=== PATIENT | male | born 1945 | race Caucasian/White ===

== ENCOUNTER → 2017-09-02 11:15 | Outpatient (CLI) | payer MEDICARE ==
[2015-02-21 07:17] VITALS: BMI 19.8
[~2017-09-02 11:15] MED LIST: BACTRIM DS TABL1 TAB PO; BETAPACE 80 MG80 MG PO; DILANTIN100 MG PO; DILAUDID4 MG PO; HYDROCODONE-APA1 TAB PO; KLOR-CON 1010 MEQ PO; LASIX40 MG PO; LEVAQUIN500 MG PO; METOPROLOL TAR100 M1 PO; MUCINEX600 MG PO; PLAVIX75 MG PO; PRAVACHOL40 MG PO; RESTORIL15 MG PO; RESTORIL22.5 MG PO; STERAPRED DS 1210 MG PO
[2017-09-02 11:54] LABS: BASOPHILS 0.8 % (0-2); EOSINOPHILS 5.3 % (0-7); HEMOGLOBIN 12.5 g/dL (13.5-17.5); IMMATURE GRANULOCYTES 0.2 % (0-5); LYMPHOCYTES 17.6 % (15-50); MCH 24.6 pg (26.0-34.0); MCHC 30.5 g/dL (31.0-37.0); MCV 80.7 fL (80.0-100.0); MEAN PLATELET VOLUME 8.9 fL (7.4-10.4); MONOCYTES 9.5 % (2-11); NEUTROPHILS 66.6 % (40-80); PLATELET COUNT 203 10x3/uL (130-400); RBC 5.08 10x6/uL (4.20-6.10); RDW 19.6 % (11.5-14.5); WBC 6.6 10x3/uL (4.8-10.8)
[2017-09-02 12:02] LABS: INR 1.01 (0.85-1.17); PROTIME 13.2 SECONDS (11.6-15.0)
[2017-09-02 12:11] LABS: % SATURATION 8 % (15-55); IRON 27 ug/dl (35-150); TOTAL IRON BIND CAPACITY 302 ug/dl (260-445); UNSAT IRON BIND CAPACITY 275 ug/dl (150-375)
[2017-09-02 12:49] LABS: ALBUMIN 3.8 g/dL (3.4-5.0); BILIRUBIN - DIRECT 0.06 mg/dL (0.00-0.30); BILIRUBIN - INDIRECT 0.21 mg/dL (0.00-1.00); BILIRUBIN - TOTAL 0.27 mg/dL (0.2-1.3); PROTEIN - SERUM 8.5 g/dL (6.4-8.2)
[2017-09-03 10:13] LABS: ALPHA FETOPROTEIN -(TUMOR MRK) 3.1 ng/mL (0.0-8.3)
[2017-09-03 11:10] LABS: HEPATITIS C ANTIBODY 0.1 (0.0-0.9)
[2017-09-07 15:25] LABS: MITOCHONDRIAL ANTIBODY 21.4 Units (0.0-20.0)
== END | disposition home or self-care (01) ==
LOC: D.LAB 11:15 → D.NM 11:45
PROVIDERS: Internal Medicine Gastroenterology
DX: R94.5 Abnormal results of liver function studies (principal); R93.2 Abnormal findings on diagnostic imaging of liver and biliary tract; D64.9 Anemia, unspecified

== ENCOUNTER 2018-01-03 11:15 | Outpatient (CLI) | payer MEDICARE ==
[~2018-01-03] VITALS: Ht 172.7 cm; Wt 68.2 kg
--- NOTE | ~2018-01-03 | HEMODYNAMI ---
PATIENT:ORI MONSALVE MEDICAL RECORD: [id number] : 43 LOCATION:[facility] ADMISSION DATE: 01/03/18 Generatedon:01/03/201815:48 Patient name: ORI MONSALVE Patient #: [id number] SSN: : 1945 Date of study: 01/03/2018 Page: Of Hemodynamic Procedure Report Patient Data Patient Demographics Procedure consent was obtained First Name: ORI Gender: Male Last Name: BELLO : 1945 Middle Initial: ERIBERTO Age: 72 year(s) Patient #: [id number] Race: Unknown Additional ID: [id number] Contact details Address: [address] [place] [address] State: [place] City: [place] Zip code: [address] Past Medical History Allergies: No known allergies Admission Admission Data Admission Date: 01/03/2018 Admission Time: 11:15 Procedure Procedure Types Cath Procedure Diagnostic Procedure PPM/ICD Permanent Pacer Generator Exg. Miscellaneous Procedures Moderate Sedation up to 30 minutes Procedure Description Procedure Date Procedure Date: 01/03/2018 Procedure Start Time: 15:25 Procedure Staff Name Function Isak Montemayor MD Performing Physician Rivka Clement RT Monitor Elijah Hansen RT Scrub Lin Ramon RN Nurse Yoly Lino RN Nurse Stanley Hernandez MD Assisting physician Procedure Data Cath Procedure Fluoroscopy Diagnostic fluoroscopy Total fluoroscopy Time: 0 time: 0 min min Diagnostic fluoroscopy Total fluoroscopy dose: 0 dose: 0 mGy mGy Estimated blood loss: 5 ml Procedure Medications Medication Administration Route Dosage 0.9% NaCl I.V. 100 ml/hr Oxygen NC 2 l/min Lidocaine 1% added to field 20 Ancef (1Gm/50ml NS) I.V.P.B 1 g Ancef Irrigation Topical 1 g (1gm/500ml NS) Fentanyl I.V. 50 mcg Versed I.V. 1 mg Fentanyl I.V. 50 mcg Versed I.V. 1 mg Hemodynamics Rest Heart Rate: 103 (bpm) Snapshots Pre Cath Intra NCS Post Cath Vital Signs Time Heart Resp SPO2 etCO2 NIBP (mmHg) Rhythm Pain Sedation Rate (ipm) (%) (mmHg) Status Level (bpm) 15:10:38 96 22 99 14.9 148/97(120) NSR 0 (11) 10(A) , No pain 15:16:01 80 20 98 14.9 144/101(123) NSR 0 (11) 10(A) , No pain 15:20:21 104 16 98 13.5 141/66(119) ST 0 (11) 10(A) , No pain 15:24:39 90 18 97 0 130/66(93) NSR 0 (11) 9(A) , No pain 15:28:59 69 16 98 32.2 111/53(90) NSR 0 (11) 10(A) , No pain 15:34:03 72 16 97 28.4 127/69(106) NSR 0 (11) 9(A) , No pain 15:39:18 69 16 96 32.2 110/62(92) NSR 0 (11) 9(A) , No pain 15:43:28 77 16 96 30.7 118/57(104) NSR 0 (11) 10(A) , No pain 15:47:40 88 11 97 23.2 122/66(109) NSR 0 (11) 10(A) , No pain Medications Time Medication Route Dose Verified Delivered Reason Notes Effec tiveness by by 15:09:08 0.9% NaCl I.V. 100ml/hr Isak Ceballos used for Albina Ramon RN procedure 15:09:18 Oxygen NC 2 l/min Isak Ceballos Per Albina Ramon RN physician 15:09:59 Lidocaine added 20ml ANGIE Hernandez for local 1% to vial x2 Wilfredo MANLEY anesthetic field 15:10:16 Ancef I.V.P.B 1 g ANGIE Ceballos used for (1Gm/50ml Wilfredo Ramon RN procedure NS) 15:10:43 Ancef Topical 1 g ANGIE HERNANDEZ used for Irrigation Wilfredo MNALEY procedure (1gm/500ml NS) 15:23:43 Fentanyl I.V. 50 mcg ANGIE Ceballos for Wilfredo Ramon RN sedation 15:23:57 Versed I.V. 1 mg ANGIE Ceballos for Wilfredo Ramon RN sedation 15:30:05 Fentanyl I.V. 50 mcg ANGIE figueroa MD 15:30:10 Versed I.V. 1 mg ANGIE Ceballos for Wilfredo figueroa MD Procedure Log Time Note 14:56:07 Yoly Lino RN sent for patient. Start room use. 14:56:08 Time tracking: Regular hours 14:56:15 Plan of Care:Hemodynamics will remain stable., Cardiac rhythm will remain stable., Comfort level will be maintained., Respiratory function will remain adequate., Patient/ family verbilizes understanding of procedure., Procedure tolerated without complication., Recovers from procedure without complications.. 15:01:55 Patient received from Pre/Post Procedure Room to CCL 2 Alert and oriented. Tansferred to table in Supine position. 15:01:56 Warm blankets applied, and teresa hugger turned on for patient comfort. 15:01:56 Correct patient and procedure confirmed by team. 15:01:57 Signed procedure consent form obtained from patient. 15:01:58 ECG and BP/O2 sat monitors applied to patient. 15:01:59 Full Disclosure recording started 15:09:08 0.9% NaCl 100ml/hr I.V. was administered by Lin Ramon RN; used for procedure; 15:09:18 Oxygen 2 l/min NC was administered by Lin Ramon RN; Per physician; 15:09:38 Vital chart was started 15:09:49 Rhythm: paced 15:09:59 Lidocaine 1% 20ml vial x2 added to field was administered by ANGIE Hernandez MD; for local anesthetic; 15:10:01 H&P Date Dictated: 01/02/2018 Within 30 days and on chart., H&P Addendum completed by physician on day of procedure. (MUST COMPLETE FOR ALL OUTPATIENTS). 15:10:02 Pre-procedure instructions explained to patient. 15:10:03 Pre-op teaching completed and patient verbalized understanding. 15:10:04 Family in patients room. 15:10:06 Patient NPO since Midnight. 15:10:11 Patient allergic to No known allergies 15:10:13 Is the patient allergic to Iodine/contrast media? No. 15:10:16 Ancef (1Gm/50ml NS) 1 g I.V.P.B was administered by Lin Ramon RN; used for procedure; 15:10:17 Patient diabetic? No. 15:10:27 Is patient on blood thinner?Yes 15:10:29 ACC The patient was administered the following blood thiners within the last 24 hours: ACCPlavix 15:10:33 Previous problem with sedation/anesthesia? No ? 15:10:34 Snore? Yes 15:10:35 Sleep apnea? No 15:10:35 Deviated septum? No 15:10:36 Opens mouth fully? Yes 15:10:37 Sticks out tongue? Yes 15:10:39 Airway obstruction? Yes COPD 15:10:43 Ancef Irrigation (1gm/500ml NS) 1 g Topical was administered by ANGIE HERNANDEZ MD; used for procedure; 15:10:43 Dentures? No ? 15:10:47 Patient pain scale 0/10 ?. 15:10:52 IV patent on arrival in left hand with 0.9% NaCl at O. 15:10:54 Lab results completed and on chart. 15:11:05 Right chest area was prepped with chlora-prep and draped in sterile fashion 15:11:06 Alarms reviewed by R. N. 15:11:06 Sharps counted by scrub and verified by R.N. 15:11:09 Use device set LYDIA PPM 15:11:12 2.0 Ticron Multipack ([id number]) opened to sterile field. 15:11:12 3.0 Vicryl Single Pack [id number] opened to sterile field. 15:11:13 5.0 Monocryl PS2 [id number] opened to sterile field. 15:11:13 Cautery Tip Branch Office Administrator opened to sterile field. 15:11:14 Cautery Pushbutton Pencil opened to sterile field. 15:11:14 Mepilex Dressing ([id number]) opened to sterile field. 15:11:29 MedAimetisa MRI PPM Dual Generator [id number] opened to sterile field. 15:15:57 Baseline sample Acquired. 15:16:11 Physician paged 15:16:11 Physician responded to page. 15:22:28 Final Timeout: patient, procedure, and site verified with staff and physician. All members of the team are in agreement. 15:22:48 Right chest site verified by team. 15::56 Physical assessment completed. ASA score P 2 - A patient with mild systemic disease as per Stanley Hernandez MD. 15:23:20 Sedation plan: IV Moderate Sedation Medication:Versed, Fentanyl 15:23:37 Medtronic branch customer service representative Jonah Lopez present for procedure. 15:23:43 Fentanyl 50 mcg I.V. was administered by Lin Ramon RN; for sedation; 15::57 Versed 1 mg I.V. was administered by Lin Ramon RN; for sedation; 15::57 Pre sharps counted by scrub and verified by RN: Sutures: 7; Sponges: 5; Stick needles: 2; Skin needles: 2; Blade: 1; Cautery: 1 15:24:00 Grounding pad site Left thigh. 15:24:01 Grounding pad site free from injury. 15:25:18 Lidocaine 1% was administered to right subclavicular area by Stanley Hernandez MD . 15:26:23 Incision made to right subclavicular area. 15:26:24 Generator pocket made/opened. 15:30:05 Fentanyl 50 mcg I.V. was administered by Lin Ramon RN; for sedation; 15:30:10 Versed 1 mg I.V. was administered by Lin Ramon RN; for sedation; 15:30:42 PPM Dual was removed.. 15:30:49 PPM Dual was attached to lead(s) and inserted into pocket. 15:30:54 Device pocket was irrigated with Ancef. 15:31:21 Generator was sutured in place with 2-0 ticron. 15:31:32 Subcutaneous closure was completed with 3-0 vicryl. 15:32:40 Skin closure was completed with 5-0 monocryl. 15:40:47 Rt Chest incision was dressed with Mepilex dressing. 15:40:52 Procedure ended.(Physican Out) 15:41:10 Fluoroscopy time 00.00 minutes. 15:41:12 Fluoroscopy dose: 0 mGy 15:41:12 Flurop Dose total: 0 15:41:16 Sharps counted by scrub and verified by R.N. 15:41:30 Post sharps counted by scrub and verified by RN: Sutures: 7; Sponges: 5; Stick needles: 2; Skin needles: 2; Blade: 1; Cautery: 1 15:41:36 Insertion/operative site no bleeding no hematoma. 15:41:49 Post Chest area:stable, clean and dry 15:41:51 Post Procedure Pulses reassessed and unchanged 15:42:05 Post-procedure physical assessment completed. ASA score P 2 - A patient with mild systemic disease as per Stanley Hernandez MD. 15:42:23 Post procedure rhythm: paced 15:42:25 Estimated blood loss: 5 ml 15:42:26 Post procedure instruction explained to patient.Patient verbalizes understanding. 15:42:27 Patient needs reinforcement of post procedure teaching. 15:42:35 Procedure type changed to Cath procedure, Diagnostic procedure, PPM/ICD, Permanent Pacer Generator Exg., Miscellaneous Procedures, Moderate Sedation up to 30 minutes 15:42:39 See physician's report for complete and final results. 15:43:05 Procedure and supply charges have been captured, reviewed, submitted and are correct. 15:47:42 Vital chart was stopped 15:47:44 Report given to Pre/Post Procedure Room. 15:47:47 Patient transfered to Pre/Post Procedure Room with Stretcher. 15:48:00 End room use (Document Last) Device Usage Item Name Manufacture Quantity Catalog Hospital Part Current Minimal Lot# / Number Charge Number Stock Stock Serial# Code 2.0 Ticron Ethicon 4 [id number] 5 Multipack ([id number]) 3.0 Vicryl Ethicon 1 [id number] 609327 404704 5 Single Pack [id number] 5.0 Monocryl Ethicon 1 [id number] 355399 448270 5 PS2 Y495G Cautery Tip Microtek 1 [id number] 894925 888304 5 Branch Office Administrator [employer] Cautery Microtek 1 [id number] 68466 [id number] 5 Pushbutton [employer] Pencil Mepilex Cardinal 1 [id number] 539602 075594 [id number] 5 [facility] ([id number]) Medtronic Medtronic 1 [id number] 5 SN Advisa MRI [id number] PPM Dual EXP Generator 2018-11-24 [id number] Signature Audit Alden Stage Time Signature Unsigned Intra-Procedure 01/03/2018 Rivka 3:48:28 PM Counts RT(R) Signatures Monitor : Rivka Signature : Counts RT Date : Time : [address] [place] [address]
[2018-01-03 12:19] VITALS: BP 138/65; Ht 172.7 cm; Wt 68.2 kg
[2018-01-03 12:24] LABS: HEMATOCRIT 38.4 % (42.0-54.0); HEMOGLOBIN 11.4 g/dL (13.5-17.5); MCH 24.8 pg (26.0-34.0); MCHC 29.7 g/dL (31.0-37.0); MCV 83.5 fL (80.0-100.0); MEAN PLATELET VOLUME 9.4 fL (7.4-10.4); RBC 4.6 10x6/uL (4.20-6.10); RDW 19.1 % (11.5-14.5); WBC 6.2 10x3/uL (4.8-10.8)
[2018-01-03 12:55] LABS: ANION GAP 10.4 mmol/L (8-16); CALCIUM 8.6 mg/dL (8.5-10.1); CREATININE - SERUM 1.3 mg/dL (0.6-1.3); POTASSIUM - SERUM 4.4 mmol/L (3.5-5.1)
== END 2018-01-03 16:58 | disposition home or self-care (01) ==
LOC: D.CATH 11:15
PROVIDERS: Internal Medicine Interventional Cardiology
DX: Z45.010 Encounter for checking and testing of cardiac pacemaker pulse generator [battery] (principal); I49.9 Cardiac arrhythmia, unspecified; Z01.812 Encounter for preprocedural laboratory examination

== ENCOUNTER 2018-08-11 13:01 | Inpatient (IN) | payer MEDICARE ==
[~2018-08-11] VITALS: Ht 172.7 cm; Wt 62.0 kg
--- NOTE | ~2018-08-11 | CN ---
PATIENT NAME:ORI HDEZ MEDICAL RECORD: [id number] : 43 LOCATION:D. D.2136 ADMIT DATE: 08/11/18 ACCOUNT: [id number] CONSULTING PHYSICIAN: DENITA TRUONG MD REFERRING PHYSICIAN: JUNITO KEYES MD DATE OF CONSULTATION: 08/14/2018 CONSULT REQUESTING PHYSICIAN: Junito Keyes MD REASON FOR CONSULTATION: Bilateral pleural effusion, congestive heart failure. HISTORY OF PRESENT ILLNESS: Mr. Hdez is a 72-year-old gentleman who has a history of COPD and congestive heart failure. The patient was sick a few weeks ago. He was told that he has antibiotic that was treated with antibiotic, but the patient denies any fever and chill. There is no yellow or green color sputum production. The patient's shortness of breath persisted. He has a CTA of the chest yesterday, which did not show PE, but showed moderate pleural effusion with dependent atelectasis, possible infiltrate. REVIEW OF SYSTEMS: As in history of present illness. PAST MEDICAL HISTORY: 1. COPD. 2. Chronic hypoxic respiratory failure. 3. Congestive heart failure with chronic systolic dysfunction with EF 40-45%. 4. Peripheral vascular disease. 5. Coronary artery disease. 6. Hypertension. PAST SURGICAL HISTORY: 1. He has a CABG. 2. Carotid endarterectomy. 3. Status post pacemaker placement. 4. Multiple cardiac catheterizations and stent placement. 5. Herniorrhaphy. ALLERGIES: There are no known drug allergies. MEDICATIONS: Tradoriatech is reviewed. PERSONAL AND SOCIAL HISTORY: The patient is an ex-smoker. He is a nondrinker. FAMILY HISTORY: Significant for cancer and neurological disorders. PHYSICAL EXAMINATION: GENERAL: Now, the patient is lying comfortably in bed. He is not in acute distress. VITAL SIGNS: The blood pressure is 124/46, pulse is 63, respiration 20, temperature 97.3, SPO2 is 93% on 6 liter nasal cannula. HEENT: Conjunctivae are pink. Sclerae are not icteric. NECK: Supple, no JVD. CHEST: There is a dullness of percussion at the bases. There are bilateral crackles and wheeze on forceful expiration. HEART: Rhythm regular, normal sound, no murmur. ABDOMEN: Soft, bowel sounds present. No hepatosplenomegaly. CONSULT REPORT [id number] ORI HDEZ RECTAL: Deferred. EXTREMITIES: No cyanosis, no clubbing, no pedal edema. SKIN: Warm, normal turgor. CENTRAL NERVOUS SYSTEM: The patient is awake and alert. There are no obvious cranial nerve abnormality. The gait was not tested. IMAGING: CTA of the chest; there is no pulmonary embolism. There are bilateral moderate pleural effusion. There is severe emphysema. There is a dependent opacity, atelectasis, most likely secondary to edema and pleural effusion. I will doubt pneumonia. LABORATORY DATA: CBC; the WBC is 6000, hemoglobin 11.2, hematocrit 37.1, the platelet count is 214. Chemistry; sodium 143, potassium is 4, BUN is 12, and creatinine 1.3. IMPRESSION: 1. Qympd-nh-folnsie hypoxic respiratory failure. 2. Acute exacerbation of chronic obstructive pulmonary disease secondary to congestive heart failure. I will doubt pneumonia. 3. Bilateral moderate pleural effusion secondary to congestive heart failure. 4. Pulmonary edema. 5. Dependent atelectasis. 6. Congestive heart failure consistent with a chronic systolic dysfunction with the ejection fraction 40-45%. RECOMMENDATION: 1. Continue IV Lasix. 2. Albuterol ipratropium nebulizer. They will start Brovana and budesonide nebulizer. 3. Follow up labs and chest radiograph. If the pleural effusion is not getting any better, we will proceed with thoracentesis. Dr. Keyes, thank you for involving me in the care of Mr. Hdez. TRANSINT:[id number] Voice Confirmation ID: [id number] DOCUMENT ID: [id number] DENITA TRUONG MD CC: [id number] DICTATION DATE: 08/14/181739 TISSUE INSERTER: 08/14/182121 ADM IN [facility] [address] [place] [id number]
[2018-08-11] MEDS ORDERED: FLOMAX0.4 MG PO (13:39)
[2018-08-11] MEDS ORDERED: VITAMIN D250000 UNIT PO (13:40)
[2018-08-11 14:08] VITALS: BP 126/45; BMI 22.8
[2018-08-11 14:36] LABS: BASOPHILS 1.3 % (0-2); HEMATOCRIT 36.5 % (42.0-54.0); HEMOGLOBIN 11.2 g/dL (13.5-17.5); IMMATURE GRANULOCYTES 0.2 % (0-5); LYMPHOCYTES 12.7 % (15-50); MCH 24.2 pg (26.0-34.0); MCHC 30.7 g/dL (31.0-37.0); MCV 78.8 fL (80.0-100.0); MEAN PLATELET VOLUME 8.9 fL (7.4-10.4); MONOCYTES 13.5 % (2-11); NEUTROPHILS 67.3 % (40-80); PLATELET COUNT 233 10x3/uL (130-400); RBC 4.63 10x6/uL (4.20-6.10); RDW 18.6 % (11.5-14.5)
[2018-08-11 14:50] LABS: ALBUMIN 2.7 g/dL (3.4-5.0); ANION GAP 13.1 mmol/L (8-16); BILIRUBIN - TOTAL 0.38 mg/dL (0.2-1.3); CARBON DIOXIDE 28.4 mmol/L (21.0-32.0); CREATININE - SERUM 1.4 mg/dL (0.6-1.3); POTASSIUM - SERUM 4.5 mmol/L (3.5-5.1); PROTEIN - SERUM 6.5 g/dL (6.4-8.2)
[2018-08-11 20:00] VITALS: BP 126/50
[2018-08-12 04:00] VITALS: BP 114/42
[2018-08-12 09:28] VITALS: BP 131/51
[2018-08-12 12:58] VITALS: BP 117/50
[2018-08-12 13:25] VITALS: Ht 172.7 cm; Wt 62.0 kg
[2018-08-12 14:03] LABS: CKMB 1.1 U/L (0.0-3.6); CREATINE KINASE 85 UL (21-232); PRO BNP 7290 pg/mL (0-125); TROPONIN-I 0.053 ng/mL (0.000-0.060)
[2018-08-12 14:08] LABS: MAGNESIUM - SERUM 1.8 mg/dL (1.8-2.4)
[2018-08-12 14:09] LABS: PHENYTOIN (DILANTIN) 16.2 ug/mL (10.0-20.0)
[2018-08-12 15:37] LABS: APTT 29.1 SECONDS (22.8-39.4); INR 1.26 (0.85-1.17); PROTIME 15.4 SECONDS (11.6-15.0)
[2018-08-12 15:38] LABS: D-DIMER-QUANTITATIVE 2.61 ug/mLFEU (0.20-0.54)
[2018-08-12 15:41] LABS: % SATURATION 7 % (15-55); IRON 15 ug/dl (35-150); TOTAL IRON BIND CAPACITY 204 ug/dl (260-445); UNSAT IRON BIND CAPACITY 189 ug/dl (150-375)
[2018-08-12 18:45] LABS: CKMB 1.2 U/L (0.0-3.6); CREATINE KINASE 92 UL (21-232); TROPONIN-I 0.057 ng/mL (0.000-0.060)
[2018-08-12 20:00] VITALS: BP 132/44
[2018-08-13] VITALS (7 sets, daily range): BP systolic 131–139; BP diastolic 45–65
[2018-08-13 00:57] LABS: CREATINE KINASE 77 UL (21-232); TROPONIN-I 0.067 ng/mL (0.000-0.060)
[2018-08-13 06:26] LABS: BASOPHILS 0.7 % (0-2); EOSINOPHILS 3.7 % (0-7); HEMATOCRIT 33.5 % (42.0-54.0); HEMOGLOBIN 10.1 g/dL (13.5-17.5); IMMATURE GRANULOCYTES 0.2 % (0-5); LYMPHOCYTES 9.3 % (15-50); MCH 23.8 pg (26.0-34.0); MCHC 30.1 g/dL (31.0-37.0); MCV 78.8 fL (80.0-100.0); MEAN PLATELET VOLUME 9.2 fL (7.4-10.4); MONOCYTES 10.8 % (2-11); NEUTROPHILS 75.3 % (40-80); RBC 4.25 10x6/uL (4.20-6.10); RDW 18.3 % (11.5-14.5)
[2018-08-13 06:31] LABS: PLATELET COUNT 183 10x3/uL (130-400)
[2018-08-13 06:51] LABS: ANION GAP 13.6 mmol/L (8-16); CALCIUM 7.3 mg/dL (8.5-10.1); CARBON DIOXIDE 25.7 mmol/L (21.0-32.0); CREATININE - SERUM 1.2 mg/dL (0.6-1.3)
[2018-08-13 07:07] LABS: POTASSIUM - SERUM 3.3 mmol/L (3.5-5.1)
[2018-08-14 04:30] VITALS: BP 105/51
[2018-08-14 07:46] LABS: BASOPHILS 0.7 % (0-2); EOSINOPHILS 4.6 % (0-7); HEMATOCRIT 37.1 % (42.0-54.0); HEMOGLOBIN 11.2 g/dL (13.5-17.5); IMMATURE GRANULOCYTES 0.2 % (0-5); LYMPHOCYTES 10.3 % (15-50); MCH 23.8 pg (26.0-34.0); MCHC 30.2 g/dL (31.0-37.0); MCV 78.9 fL (80.0-100.0); MEAN PLATELET VOLUME 9.7 fL (7.4-10.4); MONOCYTES 10.8 % (2-11); NEUTROPHILS 73.4 % (40-80); PLATELET COUNT 214 10x3/uL (130-400); RDW 18.7 % (11.5-14.5)
[2018-08-14 07:54] LABS: ANION GAP 14.9 mmol/L (8-16); CALCIUM 8.1 mg/dL (8.5-10.1); CARBON DIOXIDE 29.1 mmol/L (21.0-32.0); CREATININE - SERUM 1.3 mg/dL (0.6-1.3)
[2018-08-14 08:58] VITALS: BP 140/45
[2018-08-14 12:02] VITALS: BP 138/51
[2018-08-14 16:03] VITALS: BP 124/46
[2018-08-14 20:00] VITALS: BP 113/50
[2018-08-15] VITALS (7 sets, daily range): BP systolic 108–173; BP diastolic 42–81
[2018-08-15 06:56] LABS: BASOPHILS 1.3 % (0-2); EOSINOPHILS 8.3 % (0-7); HEMATOCRIT 36.6 % (42.0-54.0); HEMOGLOBIN 11.2 g/dL (13.5-17.5); LYMPHOCYTES 13.3 % (15-50); MCH 24.1 pg (26.0-34.0); MCHC 30.6 g/dL (31.0-37.0); MCV 78.7 fL (80.0-100.0); MEAN PLATELET VOLUME 9.2 fL (7.4-10.4); MONOCYTES 11.6 % (2-11); NEUTROPHILS 65.5 % (40-80); PLATELET COUNT 210 10x3/uL (130-400); RBC 4.65 10x6/uL (4.20-6.10); RDW 18.5 % (11.5-14.5); WBC 5.3 10x3/uL (4.8-10.8)
[2018-08-15 07:09] LABS: ANION GAP 9.5 mmol/L (8-16); CALCIUM 8.1 mg/dL (8.5-10.1); CARBON DIOXIDE 30.8 mmol/L (21.0-32.0); CREATININE - SERUM 1.3 mg/dL (0.6-1.3)
[2018-08-15 07:12] LABS: POTASSIUM - SERUM 3.3 mmol/L (3.5-5.1)
[2018-08-15 10:23] LABS: FOLATE (FOLIC ACID) - SERUM 5.5 ng/mL (>3.0)
[2018-08-16 04:00] VITALS: BP 110/47
[2018-08-16 05:44] LABS: EOSINOPHILS 7.5 % (0-7); HEMOGLOBIN 11.4 g/dL (13.5-17.5); IMMATURE GRANULOCYTES 0.2 % (0-5); LYMPHOCYTES 11.8 % (15-50); MCH 23.9 pg (26.0-34.0); MCHC 30.8 g/dL (31.0-37.0); MCV 77.7 fL (80.0-100.0); MEAN PLATELET VOLUME 9.4 fL (7.4-10.4); MONOCYTES 11.1 % (2-11); NEUTROPHILS 68.4 % (40-80); PLATELET COUNT 223 10x3/uL (130-400); RBC 4.76 10x6/uL (4.20-6.10); RDW 18.6 % (11.5-14.5); WBC 6.1 10x3/uL (4.8-10.8)
[2018-08-16 06:07] LABS: ANION GAP 11.4 mmol/L (8-16); CALCIUM 8.4 mg/dL (8.5-10.1); CARBON DIOXIDE 29.4 mmol/L (21.0-32.0); CREATININE - SERUM 1.2 mg/dL (0.6-1.3); POTASSIUM - SERUM 3.8 mmol/L (3.5-5.1)
[2018-08-16 09:18] VITALS: BP 111/50
[2018-08-16 11:45] VITALS: BP 125/63
[2018-08-16 16:47] VITALS: BP 123/52
[2018-08-16 20:00] VITALS: BP 118/57
[2018-08-17 04:00] VITALS: BP 118/52
[2018-08-17 05:35] LABS: BASOPHILS 1.5 % (0-2); EOSINOPHILS 8.3 % (0-7); HEMATOCRIT 38.7 % (42.0-54.0); HEMOGLOBIN 11.9 g/dL (13.5-17.5); IMMATURE GRANULOCYTES 0.2 % (0-5); LYMPHOCYTES 16.2 % (15-50); MCH 24.2 pg (26.0-34.0); MCHC 30.7 g/dL (31.0-37.0); MCV 78.8 fL (80.0-100.0); MEAN PLATELET VOLUME 9.1 fL (7.4-10.4); MONOCYTES 11.5 % (2-11); NEUTROPHILS 62.3 % (40-80); PLATELET COUNT 234 10x3/uL (130-400); RBC 4.91 10x6/uL (4.20-6.10); RDW 18.8 % (11.5-14.5); WBC 5.3 10x3/uL (4.8-10.8)
[2018-08-17 05:49] LABS: ANION GAP 8.6 mmol/L (8-16); CALCIUM 8.4 mg/dL (8.5-10.1); CARBON DIOXIDE 32.4 mmol/L (21.0-32.0); CREATININE - SERUM 1.1 mg/dL (0.6-1.3)
[2018-08-17 11:21] VITALS: BP 122/56
[2018-08-17 15:24] VITALS: BP 134/66
[2018-08-17 20:00] VITALS: BP 123/54
[2018-08-18] VITALS: BP 125/54
[2018-08-18 04:00] VITALS: BP 132/52
[2018-08-18 04:53] LABS: EOSINOPHILS 8.5 % (0-7); HEMATOCRIT 36.7 % (42.0-54.0); HEMOGLOBIN 11.1 g/dL (13.5-17.5); IMMATURE GRANULOCYTES 0.2 % (0-5); LYMPHOCYTES 15.8 % (15-50); MCH 23.8 pg (26.0-34.0); MCHC 30.2 g/dL (31.0-37.0); MCV 78.8 fL (80.0-100.0); MEAN PLATELET VOLUME 9.1 fL (7.4-10.4); MONOCYTES 12.5 % (2-11); PLATELET COUNT 218 10x3/uL (130-400); RBC 4.66 10x6/uL (4.20-6.10); WBC 5.8 10x3/uL (4.8-10.8)
[2018-08-18 05:02] LABS: ANION GAP 9.6 mmol/L (8-16); CALCIUM 8.4 mg/dL (8.5-10.1); CARBON DIOXIDE 30.4 mmol/L (21.0-32.0); CREATININE - SERUM 1.1 mg/dL (0.6-1.3)
[2018-08-18 07:59] VITALS: BP 112/52
== END 2018-08-18 15:33 | disposition home or self-care (01) | DRG 291 ==
LOC: D.M2 13:01
PROVIDERS: Family Medicine; Internal Medicine Nephrology; Internal Medicine Pulmonary Disease
DX: I11.0 Hypertensive heart disease with heart failure (principal); J96.21 Acute and chronic respiratory failure with hypoxia; J44.1 Chronic obstructive pulmonary disease with (acute) exacerbation; I50.33 Acute on chronic diastolic (congestive) heart failure; I25.10 Atherosclerotic heart disease of native coronary artery without angina pectoris; I73.9 Peripheral vascular disease, unspecified; I08.1 Rheumatic disorders of both mitral and tricuspid valves; I48.91 Unspecified atrial fibrillation; Z95.0 Presence of cardiac pacemaker; Z95.5 Presence of coronary angioplasty implant and graft; Z95.1 Presence of aortocoronary bypass graft; Z86.73 Personal history of transient ischemic attack (TIA), and cerebral infarction without residual deficits; Z87.891 Personal history of nicotine dependence

== ENCOUNTER 2020-04-09 14:03 | Inpatient (IN) | payer MEDICARE ==
[~2020-04-09] VITALS: Ht 172.7 cm; Wt 65.6 kg
[~2020-04-09 14:03] MED LIST changes: +FLOMAX0.4 MG PO; +VITAMIN D250000 UNIT PO
[2020-04-09 14:29] VITALS: BP 145/79
[2020-04-09 15:06] LABS: BASOPHILS 1.5 % (0-2); EOSINOPHILS 2.3 % (0-7); HEMATOCRIT 42.7 % (42.0-54.0); HEMOGLOBIN 13.1 g/dL (13.5-17.5); IMMATURE GRANULOCYTES 0.2 % (0-5); LYMPHOCYTES 18.8 % (15-50); MCH 29.8 pg (26.0-34.0); MCHC 30.7 g/dL (31.0-37.0); MCV 97.3 fL (80.0-100.0); MEAN PLATELET VOLUME 9.7 fL (7.4-10.4); MONOCYTES 8.3 % (2-11); NEUTROPHILS 68.9 % (40-80); RBC 4.39 10x6/uL (4.20-6.10); RDW 15.3 % (11.5-14.5); WBC 4.7 10x3/uL (4.8-10.8)
[2020-04-09 15:31] LABS: BILIRUBIN NEGATIVE (NEGATIVE); GLUCOSE NEGATIVE (NEGATIVE); KETONE NEGATIVE (NEGATIVE); NITRITE NEGATIVE (NEGATIVE); UROBILINOGEN NORMAL (NORMAL)
[2020-04-09 15:35] LABS: PLATELET COUNT 156 10x3/uL (130-400)
[2020-04-09 15:36] LABS: CALCIUM 8.5 mg/dL (8.5-10.1); CARBON DIOXIDE 26.9 mmol/L (21.0-32.0); CREATININE - SERUM 1.3 mg/dL (0.6-1.3); POTASSIUM - SERUM 3.9 mmol/L (3.5-5.1)
[2020-04-09 15:43] LABS: ALBUMIN 2.7 g/dL (3.4-5.0); BILIRUBIN - TOTAL 0.39 mg/dL (0.2-1.3)
[2020-04-09 16:28] VITALS: BP 143/81
[2020-04-09 18:01] VITALS: BP 142/59
[2020-04-09 19:09] LABS: % SATURATION 11 % (15-55); IRON 23 ug/dl (35-150); TOTAL IRON BIND CAPACITY 206 ug/dl (260-445); UNSAT IRON BIND CAPACITY 183 ug/dl (150-375)
--- NOTE | 2020-04-09 19:12 | NUR ---
ATTEMPTED REPORT NO ANSWER.
[2020-04-09 19:26] VITALS: BP 159/60
[2020-04-09 19:35] LABS: APTT 29.2 SECONDS (22.8-39.4); INR 1.22 (0.85-1.17); PROTIME 15.3 SECONDS (11.6-15.0)
[2020-04-09 19:55] VITALS: BMI 23.6
[2020-04-09 20:00] VITALS: BP 172/83
[2020-04-09 20:31] LABS: CKMB 1.7 U/L (0.0-3.6); CREATINE KINASE 32 UL (21-232); MAGNESIUM - SERUM 2.1 mg/dL (1.8-2.4); PRO BNP 20955 pg/mL (0-450)
[2020-04-09 20:33] LABS: TROPONIN-I 0.305 ng/mL (0.000-0.060)
[2020-04-10] VITALS: BP 129/70
[2020-04-10 01:47] LABS: CKMB 1.1 U/L (0.0-3.6); CREATINE KINASE 22 UL (21-232)
[2020-04-10 01:49] LABS: TROPONIN-I 0.208 ng/mL (0.000-0.060)
[2020-04-10 04:00] VITALS: BP 120/53
[2020-04-10 06:49] LABS: BASOPHILS 0.6 % (0-2); EOSINOPHILS 0 % (0-7); HEMATOCRIT 39.5 % (42.0-54.0); HEMOGLOBIN 12.2 g/dL (13.5-17.5); IMMATURE GRANULOCYTES 0.3 % (0-5); LYMPHOCYTES 13.4 % (15-50); MCH 29.5 pg (26.0-34.0); MCHC 30.9 g/dL (31.0-37.0); MCV 95.6 fL (80.0-100.0); MEAN PLATELET VOLUME 9.4 fL (7.4-10.4); MONOCYTES 4.1 % (2-11); NEUTROPHILS 81.6 % (40-80); PLATELET COUNT 155 10x3/uL (130-400); RBC 4.13 10x6/uL (4.20-6.10); RDW 15.5 % (11.5-14.5); WBC 3.4 10x3/uL (4.8-10.8)
[2020-04-10 07:26] LABS: ALBUMIN 2.6 g/dL (3.4-5.0); ALKALINE PHOSPHATASE 159 U/L (30-120); ALT (SGPT) 12 U/L (10-68); BILIRUBIN - TOTAL 0.36 mg/dL (0.2-1.3); CALC OSMOLALITY 275 mosm/kg (275-300); CARBON DIOXIDE 26.8 mmol/L (21.0-32.0); CHLORIDE - SERUM 103 mmol/L (98-107); CKMB 1.1 U/L (0.0-3.6); CREATINE KINASE 21 UL (21-232); CREATININE - SERUM 1.2 mg/dL (0.6-1.3); GLUCOSE 139 mg/dL (74-106); MAGNESIUM - SERUM 2.1 mg/dL (1.8-2.4); POTASSIUM - SERUM 3.7 mmol/L (3.5-5.1); PROTEIN - SERUM 7.2 g/dL (6.4-8.2); SODIUM 137 mmol/L (136-145); TROPONIN-I 0.177 ng/mL (0.000-0.060); UREA NITROGEN 13 mg/dL (7-18); eGFR NON AFRICAN AMERICAN 63 mL/min (90-120)
[2020-04-10 08:55] VITALS: BP 144/54
[2020-04-10 12:41] VITALS: BP 123/46
[2020-04-10 12:45] VITALS: Ht 172.7 cm; Wt 65.6 kg
[2020-04-10 16:34] VITALS: BP 120/69
--- NOTE | 2020-04-10 19:00 | NUR ---
EVENING ROUNDS COMPLETE. PT SITTING UP IN BED. NO SIGNS OF DISTRESS. PT DENIES ANY PAIN OR NEEDS AT THIS TIME. CL IN REACH, BED IN LOWEST POSITION.
[2020-04-10 20:00] VITALS: BP 115/55
[2020-04-11] VITALS: BP 119/57
--- NOTE | 2020-04-11 01:09 | NUR ---
ATTEMPTED TO CONTACT [facility] TO VERIFY NEW ORDER FOR LEVAQUIN, UNABLE TO REACH ANYONE AT THIS TIME. HOUSE SUPORVISOR CONTACTED AND WILL PULL MEDICATION.
[2020-04-11 04:00] VITALS: BP 120/58
[2020-04-11 05:57] LABS: BASOPHILS 0.5 % (0-2); EOSINOPHILS 0.7 % (0-7); HEMATOCRIT 38.4 % (42.0-54.0); HEMOGLOBIN 11.8 g/dL (13.5-17.5); IMMATURE GRANULOCYTES 0.2 % (0-5); LYMPHOCYTES 9.9 % (15-50); MCH 29.3 pg (26.0-34.0); MCHC 30.7 g/dL (31.0-37.0); MCV 95.3 fL (80.0-100.0); MEAN PLATELET VOLUME 9.1 fL (7.4-10.4); MONOCYTES 6.9 % (2-11); NEUTROPHILS 81.8 % (40-80); PLATELET COUNT 162 10x3/uL (130-400); RBC 4.03 10x6/uL (4.20-6.10); RDW 15.5 % (11.5-14.5)
[2020-04-11 06:20] LABS: WBC 5.9 10x3/uL (4.8-10.8)
[2020-04-11 06:21] LABS: ALBUMIN 2.5 g/dL (3.4-5.0); ANION GAP 8.7 mmol/L (8-16); BILIRUBIN - TOTAL 0.44 mg/dL (0.2-1.3); CALCIUM 7.9 mg/dL (8.5-10.1); CREATININE - SERUM 1.1 mg/dL (0.6-1.3); MAGNESIUM - SERUM 2.1 mg/dL (1.8-2.4); POTASSIUM - SERUM 3.7 mmol/L (3.5-5.1); PROTEIN - SERUM 7.2 g/dL (6.4-8.2)
[2020-04-11 08:24] VITALS: BP 129/49
[2020-04-11 12:34] VITALS: BP 131/53
--- NOTE | 2020-04-11 16:17 | MORECARE ---
CASE MANAGEMENT DISCHARGE SUMMARY PATIENT: ORI HDEZ UNIT: [id number] ADM DATE: 04/09/20 AGE: 74 : 44 SEX: M ROOM/BED: D.211 AUTHOR: MICHELINE ALBRECHT PHYSICIAN: REFERRING PHYSICIAN: JENNA CARDENAS DO DATE OF SERVICE: 04/11/20 Discharge Plan Patient Name: ORI HDEZ [facility] [facility] 1945 Planned Disposition: Home Anticipated Discharge Date: Discharge Date: Expected LOS: Initial Reviewer: [email or web address] Initial Review Date: 04/11/2020 Generated: 04/11/20 5:16 pm DCPIA - Discharge Planning Initial Assessment Updated by [email or web address]: Ladonna Espinoza on 04/11/20 4:15 pm * Is the patient Alert and Oriented? Yes * How many steps to enter\exit or inside your home? 2/0 * PCP Dr. Pryor * Preadmission Environment Home with Family * ADLs Partial Dependent * Partial ADLs (Assistance needed) Ambulation * Equipment Nebulizer Oxygen Walker * List name and contact numbers for known caregivers / representatives who currently or will assist patient after discharge: Yessy Hdez - [phone] * Verbal permission to speak to the caregivers and representatives has been obtained from the patient. Yes * Community resources currently utilized None * Please name any agencies selected above. [facility] for oxygen needs * Additional services required to return to the preadmission environment? No * Can the patient safely return to the preadmission environment? Yes * Has this patient been hospitalized within the prior 30 days at any hospital? No Patient Name: ORI HDEZ Page [id number] at 1617 All edits/amendments must be made on the electronic document DICTATION DATE: 04/11/201615 BRICK DROPPER: NERI 04/11/20 161 RPT#: [id number] DC DATE: STATUS: ADM IN [facility] [address] [place] [address] END OF REPORT
[2020-04-11 16:22] VITALS: BP 133/58
--- NOTE | 2020-04-11 16:27 | MORECARE ---
CASE MANAGEMENT DISCHARGE SUMMARY PATIENT: ORI HDEZ UNIT: [id number] ADM DATE: 04/09/20 AGE: 74 : 44 SEX: M ROOM/BED: D.6852 AUTHOR: MICHELINE ALBRECHT PHYSICIAN: REFERRING PHYSICIAN: JENNA CARDEANS DO DATE OF SERVICE: 04/11/20 Discharge Plan Patient Name: ORI HDEZ Facility: [facility]:[place] : 1945 Planned Disposition: Home Anticipated Discharge Date: Discharge Date: Expected LOS: Initial Reviewer: [email or web address] Initial Review Date: 04/11/2020 Generated: 04/11/20 5:26 pm Comments DCP- Discharge Planning Updated by [email or web address]: Ladonna Espinoza on 04/11/20 3:[address] Patient Name: ORI HDEZ Admission Status: ER Accout number: [id number] Admission Date: 04-09-2020 : 1945 Admission Diagnosis:SHORTNESS OF BREATH Attending: JENNA CARDENAS Current LOS: 2 Anticipated DC Date: Planned Disposition: Home Primary Insurance: MEDICARE A & B DC Plan - Home with . Will need a walk test to qualify for portable oxygen Discharge Planning Comments: CM met with patient to discuss discharge planning/needs. States he lives with his spouse. States he ambulates with a walker. States he has home oxygen that he wears mostly at night on 2-3 liters NC. States he does not have portable oxygen. He will need a walk test and order for portable oxygen on discharge. He receives his oxygen supplies from [facility]. I discussed rehab, SNF, home health and additional DME needs. He declines need except for possible portable oxygen. CM will continue to follow and assist with discharge planning/needs. Precision Lens Centerer And Edger: Ladonna Espinoza DCPIA - Discharge Planning Initial Assessment Updated by [email or web address]: Ladonna Espinoza on 04/11/20 4:15 pm * Is the patient Alert and Oriented? Yes * How many steps to enter\exit or inside your home? 2/0 * PCP Dr. Pryor * Preadmission Environment Home with Family * ADLs Partial Dependent * Partial ADLs (Assistance needed) Ambulation * Equipment Nebulizer Oxygen Walker * List name and contact numbers for known caregivers / representatives who currently or will assist patient after discharge: Yessy Hdez - [phone] * Verbal permission to speak to the caregivers and representatives has been obtained from the patient. Yes * Community resources currently utilized None * Please name any agencies selected above. [facility] for oxygen needs * Additional services required to return to the preadmission environment? No * Can the patient safely return to the preadmission environment? Yes * Has this patient been hospitalized within the prior 30 days at any hospital? No Coverage Notice Reviewer: [email or web address] Gary Espinoza Notice Issued Date-Time: 04/11/2020 16:22 Notice Type: IM Discharge Notice Notice Delivered To: Patient Relationship to Patient: Self Housing Assistant Property Manager Name: Delivery Method: HAND - Hand Delivered Dalia Days: Prior Verbal Notification: Recipient Understood Notice: Yes Recipient Signature: Yes Med Rec Note Co-signed by Attending: Coverage Notice Comment: [facility] Last DP export: 04/11/20 3:17 p Patient Name: ORI HDEZ Page [phone] at 1627 All edits/amendments must be made on the electronic document DICTATION DATE: 04/11/201625 BINDERY WORKER: NERI 04/11/201625 RPT#: [id number] DC DATE: STATUS: ADM IN [facility] [address] [place] [address] END OF REPORT
--- NOTE | 2020-04-11 16:29 | NUR ---
OT NOTE: (AM) PT COMPLETED SUPINE TO SIT WITH CGA. PT COMPLETED EOB SITTING BALANCE WITH SBA. PT COMPLETED FACE HYGIENE WITH SET UP AT EOB. (PM) PT COMPLETED SIT TO STAND X 5 REPS WITH CGA. PT COMPLETED ADL MOB WITH CGA. PT COMPLETED BEBETO/DOFF SHOES AT EOB WITH SBA. PT COMPLETED UE AROM EXS AT EOB WITH SBA. [phone] THANK YOU,LAUREN ARMSTRONG
[2020-04-11 20:30] VITALS: BP 133/69
--- NOTE | 2020-04-11 23:30 | NUR ---
RECEIVED UP IN BED WITH EYES OPEN AND SMILING. STATED "I FEEL BETTER TODAY". ALERT AND ORIENTED X4. UP AD CANELO TO B/R. O2@ 3 LITERS PER N/C IN PLACE. IV TO RT HAND SL. TELEMETRY IN PLACE. DENIES ANY NEEDSS OR PAIN. SPOUSE CALLED EARLIER WANTING INFORMATION. EXPLAINED THAT SHE NEEDED A CODE. ASKED HER TO CALL HER TO GET THE CODE. WROTE CODE ON STICKY NOTE AND GAVE IT TO PT. SPOUSE CALLED BACK WITH CODE AND SPOKE WITH HER.
[2020-04-12 00:30] VITALS: BP 111/46
[2020-04-12 04:30] VITALS: BP 124/67
[2020-04-12 04:52] LABS: BASOPHILS 0.5 % (0-2); HEMATOCRIT 37.3 % (42.0-54.0); HEMOGLOBIN 11.5 g/dL (13.5-17.5); IMMATURE GRANULOCYTES 0.2 % (0-5); LYMPHOCYTES 10.8 % (15-50); MCH 29.6 pg (26.0-34.0); MCHC 30.8 g/dL (31.0-37.0); MCV 95.9 fL (80.0-100.0); MEAN PLATELET VOLUME 9.2 fL (7.4-10.4); MONOCYTES 7.3 % (2-11); NEUTROPHILS 80.2 % (40-80); PLATELET COUNT 183 10x3/uL (130-400); RBC 3.89 10x6/uL (4.20-6.10); RDW 15.7 % (11.5-14.5)
[2020-04-12 05:12] LABS: ALBUMIN 2.4 g/dL (3.4-5.0); BILIRUBIN - TOTAL 0.49 mg/dL (0.2-1.3); CALCIUM 7.8 mg/dL (8.5-10.1); CARBON DIOXIDE 25.8 mmol/L (21.0-32.0); CREATININE - SERUM 1.1 mg/dL (0.6-1.3); MAGNESIUM - SERUM 2.1 mg/dL (1.8-2.4); POTASSIUM - SERUM 3.8 mmol/L (3.5-5.1); PROTEIN - SERUM 7.1 g/dL (6.4-8.2)
--- NOTE | 2020-04-12 08:52 | NUR ---
ROUNDING DONE WITH PATIENT SITTING UP IN THE BED EATING BREAKFAST. GLASSES ON. DENIES NEEDS AT THIS TIME. ON HEART MONITOR SHOWING CAF WITH OCC PVC, HR 99. ON 3L PER NC. RIGHT HAND WITH SALINE LOCK SEEN. ON EP, LABS WNL. NEEDING STOOL SAMPLE.
[2020-04-12 09:47] VITALS: BP 140/82
[2020-04-12 13:10] VITALS: BP 124/67
[2020-04-12 17:59] VITALS: BP 115/66; BP 140/71
--- NOTE | 2020-04-12 19:57 | NUR ---
RECEIVED BEDSIDE SHIFT REPORT. ALERT AND ORIENTED X4. UP IN BED WITH TV ON. O2@ B3 LITERS PER N/C IN PLACE. IV TO RT HAND SL. TELEMETRY IN PLACE. DENIES ANY NEEDS AT THIS TIME.
[2020-04-12 20:30] VITALS: BP 122/62
[2020-04-13 00:30] VITALS: BP 130/54
[2020-04-13 04:25] VITALS: BP 142/67
[2020-04-13 04:59] LABS: BASOPHILS 0.5 % (0-2); EOSINOPHILS 1.1 % (0-7); HEMATOCRIT 38.1 % (42.0-54.0); HEMOGLOBIN 11.7 g/dL (13.5-17.5); IMMATURE GRANULOCYTES 0.2 % (0-5); LYMPHOCYTES 12.8 % (15-50); MCH 29.7 pg (26.0-34.0); MCHC 30.7 g/dL (31.0-37.0); MCV 96.7 fL (80.0-100.0); MONOCYTES 8.3 % (2-11); NEUTROPHILS 77.1 % (40-80); PLATELET COUNT 181 10x3/uL (130-400); RBC 3.94 10x6/uL (4.20-6.10); RDW 15.6 % (11.5-14.5); WBC 6.2 10x3/uL (4.8-10.8)
[2020-04-13 05:15] LABS: ALBUMIN 2.4 g/dL (3.4-5.0); ANION GAP 9.5 mmol/L (8-16); BILIRUBIN - TOTAL 0.48 mg/dL (0.2-1.3); CALCIUM 7.9 mg/dL (8.5-10.1); CARBON DIOXIDE 27.4 mmol/L (21.0-32.0); CREATININE - SERUM 1.3 mg/dL (0.6-1.3); MAGNESIUM - SERUM 2.1 mg/dL (1.8-2.4); POTASSIUM - SERUM 3.9 mmol/L (3.5-5.1); PROTEIN - SERUM 6.9 g/dL (6.4-8.2)
--- NOTE | 2020-04-13 07:20 | NUR ---
RECIEVE REPORT. ALERT AND ORIENTED X4. RESTING IN BED. DENIES ANY NEEDS. CONTINUE PLAN OF CARE AND SAFETY PRECAUTIONS.
--- NOTE | 2020-04-13 08:56 | EC ---
PATIENT:ORI MONSALVE DATE OF SERVICE: 04/09/20 SEX: M MEDICAL RECORD: [id number] DATE OF : 43 LOCATION:D.M2 D.211 AGE OF PATIENT: 74 ADMISSION DATE: 04/09/20 REFERRING PHYSICIAN: INTERPRETING PHYSICIAN: FARTUN TIAN MD ECHOCARDIOGRAM REPORT ECHO CHARGES 4 ECHO COMPLETE Date: 04/10/20 CLINICAL DIAGNOSIS: DYSPNEA ECHOCARDIOGRAPHIC MEASUREMENTS (adult normal given) AC root (d.<3.7cm) 2.9 cm LV Septum d (<1.2 cm> 0.8 cm Valve Excursion 1.6 cm LV Septum (systole) 0.9 cm Left Atria (s.<4.0cm> 4.2 cm LVPW d(<1.2cm) 1.0 cm RV (d.<2.3cm) 2.8 cm LVPW (sytole) 1.2 cm LV diastole(<5.6CM) 5.8 cm MV E-F(>70mm/sec) cm LV systole 4.5 cm LVOT Diameter 1.7 cm MV exc.(>10mm) cm Est.ejection fraction (50-75%) % DOPPLER: LVIT cm/sec A 34 cm/sec E 119 cm/sec LA cm/sec RVSP 31.4 mmHg LVOT 79 cm/sec AOP1/2T m/s Asc. Ao 88 cm/sec RVOT 61 cm/sec RA cm/sec PA 76 cm/sec AV Gradient Peak 3.1 mmHg AV Mean 2.0 mmHg AV Area 2.0 cm MV Gradient Peak 8.5 mmHg MV Mean 3.1 mmHg MV Area cm COMMENTS: Cable Engineer: Julieta [facility] Wind Development Director: 3 Dr. Rosenthal TAPE# PACS Pericardial Effusion N DATE OF SERVICE: Adequate 2D, color flow imaging, spectral Doppler, and M-Mode. No LVH. LV internal dimensions are normal. There is paradoxical septal motion consistent with underlying paced rhythm. Overall, LV function lower limits of normal, mildly reduced at 45% to 50%. Aortic valve is tricuspid. No evidence of stenosis by Doppler interrogation. The left atrium, mild dilated 4.2 cm. Mitral valve shows no prolapse. Mild MR. Right-sided chamber is grossly normal. Mild TR. ECHOCARDIOGRAM REPORT [id number] ORI MONSALVE TRANSINT:[id number] Voice Confirmation ID: [id number] DOCUMENT ID: [id number] FARTUN TIAN MD at 0856 CC: [id number] DICTATION DATE: 04/10/20 150 ULTRASONIC CLEANER: 04/10/20 211 ADM IN [facility] [address] [place] [address]
[2020-04-13 09:24] VITALS: BP 135/66
[2020-04-13 12:10] VITALS: BP 125/69
[2020-04-13 20:00] VITALS: BP 115/67
--- NOTE | 2020-04-13 20:19 | NUR ---
RECIEVED UP IN BED WITH EYES OPEN AND TV ON. ALERT AND ORIENTED X4. UP AD CANELO TO B/R. REMAINS ON 3 LITER PER N/C. IV TO RT HAND SL. PACE MAKER TO LT CHEST. TELEMETRY IN PLACE. STATED " I FEEL BETTER AND HAVE MORE ENERGY". DENIES ANY NEEDS AT THIS TIME.
[2020-04-14 04:31] VITALS: BP 127/66
[2020-04-14 06:34] LABS: BASOPHILS 0.5 % (0-2); EOSINOPHILS 3.4 % (0-7); HEMATOCRIT 39.3 % (42.0-54.0); IMMATURE GRANULOCYTES 0.2 % (0-5); LYMPHOCYTES 14.2 % (15-50); MCH 29.4 pg (26.0-34.0); MCHC 30.5 g/dL (31.0-37.0); MCV 96.3 fL (80.0-100.0); MEAN PLATELET VOLUME 9.1 fL (7.4-10.4); MONOCYTES 9.4 % (2-11); NEUTROPHILS 72.3 % (40-80); PLATELET COUNT 179 10x3/uL (130-400); RBC 4.08 10x6/uL (4.20-6.10); RDW 15.6 % (11.5-14.5); WBC 6.5 10x3/uL (4.8-10.8)
[2020-04-14 06:49] LABS: ALBUMIN 2.5 g/dL (3.4-5.0); ANION GAP 9.2 mmol/L (8-16); BILIRUBIN - TOTAL 0.53 mg/dL (0.2-1.3); CARBON DIOXIDE 27.6 mmol/L (21.0-32.0); CREATININE - SERUM 1.1 mg/dL (0.6-1.3); POTASSIUM - SERUM 3.8 mmol/L (3.5-5.1); PROTEIN - SERUM 7.1 g/dL (6.4-8.2)
--- NOTE | 2020-04-14 07:20 | NUR ---
RECIEVE REPORT. RESTING IN BED WITH EYES CLOSED. NO SIGNS OF DISTRESS. CONTINUE PLAN OF CARE AND SAFETY PRECAUTIONS.
[2020-04-14 09:46] VITALS: BP 124/72
[2020-04-14 11:51] VITALS: BP 131/64
[2020-04-14] MEDS ORDERED: LEVOFLOXACIN500 MG PO (12:11)
[2020-04-14] MEDS ORDERED: PREDNISONE20 MG PO (12:12)
[2020-04-14] MEDS ORDERED: VENTOLIN HFA [SP8 GM INH (12:13)
--- NOTE | 2020-04-14 14:15 | MORECARE ---
CASE MANAGEMENT DISCHARGE SUMMARY PATIENT: ORI HDEZ UNIT: [id number] ADM DATE: 04/09/20 AGE: 74 : 43 SEX: M ROOM/BED: D.2112 AUTHOR: MICHELINE ALBRECHT PHYSICIAN: REFERRING PHYSICIAN: JENNA CARDENAS DO DATE OF SERVICE: 04/14/20 Discharge Plan Patient Name: ORI HDEZ Facility: [facility]:[place] : 1945 Planned Disposition: Home Anticipated Discharge Date: Discharge Date: Expected LOS: Initial Reviewer: [id number] Initial Review Date: 04/11/2020 Generated: 04/14/20 3:14 pm Comments DCP- Discharge Planning Updated by [email or web address]: Maranda Garcia on 04/14/20 1:[address] CM met with patient regarding DC needs/plans. Alert/oriented. Patient states the only thing he needs is portable O2. CM contacted Jose, with [facility] for a walk test. Patient states his , Yessy Hdez [phone], will drive him home. CM instructed to wait on the walk test and see if he qualifies for portable, before he goes home, he is in agreement to this. Patient states he has not been able to get outside or able to do much since his lungs have been bad. PCP: Liana Moncdaa APRN, with Dr. Pryor. DME: walker, home O2, Nebulizer, shower chair. Denies the need for HHS, Rehab, SNF. Denies being hospitalized within past 30 days. DC IMM signed, Patient choice signed. DCP- Discharge Planning Updated by [id number]: Ladonna Isabellakd on 04/11/20 3:[address] Patient Name: ORI HDEZ Admission Status: ER Accout number: [id number] Admission Date: 04-09-2020 : 1945 Admission Diagnosis:SHORTNESS OF BREATH Attending: JENNA CARDENAS Current LOS: 2 Anticipated DC Date: Planned Disposition: Home Primary Insurance: MEDICARE A & B DC Plan - Home with . Will need a walk test to qualify for portable oxygen Discharge Planning Comments: CM met with patient to discuss discharge planning/needs. States he lives with his spouse. States he ambulates with a walker. States he has home oxygen that he wears mostly at night on 2-3 liters [place]. States he does not have portable oxygen. He will need a walk test and order for portable oxygen on discharge. He receives his oxygen supplies from [facility], [facility] signed. I discussed rehab, SNF, home health and additional DME needs. He declines need except for possible portable oxygen. CM will continue to follow and assist with discharge planning/needs. Card Cleaner: Ladonna Espinoza DCPIA - Discharge Planning Initial Assessment Updated by [email or web address]: Ladonna Espinoza on 04/11/20 4:15 pm * Is the patient Alert and Oriented? Yes * How many steps to enter\exit or inside your home? 2/0 * PCP Dr. Pryor * Preadmission Environment Home with Family * ADLs Partial Dependent * Partial ADLs (Assistance needed) Ambulation * Equipment Nebulizer Oxygen Walker * List name and contact numbers for known caregivers / representatives who currently or will assist patient after discharge: Yessy Hdez - [phone] * Verbal permission to speak to the caregivers and representatives has been obtained from the patient. Yes * Community resources currently utilized None * Please name any agencies selected above. [facility] for oxygen needs * Additional services required to return to the preadmission environment? No * Can the patient safely return to the preadmission environment? Yes * Has this patient been hospitalized within the prior 30 days at any hospital? No Coverage Notice Reviewer: [id number] - Ladonna Espinoza Notice Issued Date-Time: 04/11/2020 16:22 Notice Type: IM Discharge Notice Notice Delivered To: Patient Relationship to Patient: Self Keno Writer / Runner Name: Delivery Method: HAND - Hand Delivered Dalia Days: Prior Verbal Notification: Recipient Understood Notice: Yes Recipient Signature: Yes Med Rec Note Co-signed by Attending: Coverage Notice Comment: [facility] PATIENT Reviewer: [id number] - Maranda Garcia Notice Issued Date-Time: 04/14/2020 13:55 Notice Type: IM Discharge Notice Notice Delivered To: Patient Relationship to Patient: Self Keno Writer / Runner Name: Ori Hdez Delivery Method: HAND - Hand Delivered Dalia Days: Prior Verbal Notification: Recipient Understood Notice: Recipient Signature: Yes Med Rec Note Co-signed by Attending: Coverage Notice Comment: DC IMM signed/given to patient. Original to chart. Last DP export: 04/11/20 3:27 p Patient Name: ORI HDEZ Page [id number] at 1415 All edits/amendments must be made on the electronic document DICTATION DATE: 04/14/201413 CERTIFIED MAINTENANCE WELDER: NERI 04/14/201413 RPT#: [id number] DC DATE: STATUS: ADM IN [facility] [address] [place] [address] END OF REPORT
--- NOTE | 2020-04-14 14:49 | MORECARE ---
CASE MANAGEMENT DISCHARGE SUMMARY PATIENT: ORI HDEZ UNIT: [id number] ADM DATE: 04/09/20 AGE: 74 : 44 SEX: M ROOM/BED: D.2112 AUTHOR: MICHELINE ALBRECHT PHYSICIAN: REFERRING PHYSICIAN: JENNA CARDENAS DO DATE OF SERVICE: 04/14/20 Discharge Plan Patient Name: ORI HDEZ Facility: [facility]:[place] : 1945 Planned Disposition: Home Anticipated Discharge Date: 04/14/20 Discharge Date: Expected LOS: 5 Initial Reviewer: [email or web address] Initial Review Date: 04/11/2020 Generated: 04/14/20 3:49 pm Comments DCP- Discharge Planning Updated by [id number]: Maranda Garcia on 04/14/20 1:[address] CM met with patient regarding DC needs/plans. Alert/oriented. Patient states the only thing he needs is portable O2. CM contacted Jose, with [facility] for a walk test. Patient states his , Yessy Hdez [phone], will drive him home. CM instructed to wait on the walk test and see if he qualifies for portable, before he goes home, he is in agreement to this. Patient states he has not been able to get outside or able to do much since his lungs have been bad. PCP: Liana Moncada APRN, with Dr. Pryor. DME: walker, home O2, Nebulizer, shower chair. Denies the need for HHS, Rehab, SNF. Denies being hospitalized within past 30 days. DC IMM signed, Patient choice signed. DCP- Discharge Planning Updated by [email or web address]: Ladonna Masonkd on 04/11/20 3:[address] Patient Name: ORI HDEZ Admission Status: ER Accout number: [id number] Admission Date: 04-09-2020 : 1945 Admission Diagnosis:SHORTNESS OF BREATH Attending: JENNA CARDENAS Current LOS: 2 Anticipated DC Date: Planned Disposition: Home Primary Insurance: MEDICARE A & B DC Plan - Home with . Will need a walk test to qualify for portable oxygen Discharge Planning Comments: CM met with patient to discuss discharge planning/needs. States he lives with his spouse. States he ambulates with a walker. States he has home oxygen that he wears mostly at night on 2-3 liters NC. States he does not have portable oxygen. He will need a walk test and order for portable oxygen on discharge. He receives his oxygen supplies from [facility], [facility] signed. I discussed rehab, SNF, home health and additional DME needs. He declines need except for possible portable oxygen. CM will continue to follow and assist with discharge planning/needs. Lumber Loader: Ladonna Espinoza DCPIA - Discharge Planning Initial Assessment Updated by [email or web address]: Ladnona Espinoza on 04/11/20 4:15 pm * Is the patient Alert and Oriented? Yes * How many steps to enter\exit or inside your home? 2/0 * PCP Dr. Pryor * Preadmission Environment Home with Family * ADLs Partial Dependent * Partial ADLs (Assistance needed) Ambulation * Equipment Nebulizer Oxygen Walker * List name and contact numbers for known caregivers / representatives who currently or will assist patient after discharge: Yessy Hdez [phone] * Verbal permission to speak to the caregivers and representatives has been obtained from the patient. Yes * Community resources currently utilized None * Please name any agencies selected above. [facility] for oxygen needs * Additional services required to return to the preadmission environment? No * Can the patient safely return to the preadmission environment? Yes * Has this patient been hospitalized within the prior 30 days at any hospital? No External Providers External Provider: [facility] Next Contact Date: Service Request Date: Service Type: Resolution: Reviewer: Comments: Coverage Notice Reviewer: [id number] - Ladonna Espinoza Notice Issued Date-Time: 04/11/2020 16:22 Notice Type: IM Discharge Notice Notice Delivered To: Patient Relationship to Patient: Self Corporate Aircraft Mechanic Name: Delivery Method: HAND - Hand Delivered Dalia Days: Prior Verbal Notification: Recipient Understood Notice: Yes Recipient Signature: Yes Med Rec Note Co-signed by Attending: Coverage Notice Comment: [facility] PATIENT Reviewer: [id number] - Maranda Garcia Notice Issued Date-Time: 04/14/2020 13:55 Notice Type: IM Discharge Notice Notice Delivered To: Patient Relationship to Patient: Self Corporate Aircraft Mechanic Name: Ori Hdez Delivery Method: HAND - Hand Delivered Dalia Days: Prior Verbal Notification: Recipient Understood Notice: Recipient Signature: Yes Med Rec Note Co-signed by Attending: Coverage Notice Comment: DC IMM signed/given to patient. Original to chart. Last DP export: 04/14/20 1:15 p Patient Name: ORI HDEZ Page [id number] at 1449 All edits/amendments must be made on the electronic document DICTATION DATE: 04/14/201448 HR ADVISOR: NERI 04/14/20 1449 RPT#: [id number] DC DATE: STATUS: ADM IN [facility] [address] [place] [address] END OF REPORT
--- NOTE | 2020-04-14 15:00 | MORECARE ---
CASE MANAGEMENT DISCHARGE SUMMARY PATIENT: ORI HDEZ UNIT: [id number] ADM DATE: 04/09/20 AGE: 74 : 43 SEX: M ROOM/BED: D.2112 AUTHOR: MICHELINE ALBRECHT PHYSICIAN: REFERRING PHYSICIAN: JENNA CARDENAS DO DATE OF SERVICE: 04/14/20 Discharge Plan Patient Name: ORI HDEZ Facility: [facility]:[place] : 1945 Planned Disposition: Home Anticipated Discharge Date: 04/14/20 Discharge Date: Expected LOS: 5 Initial Reviewer: [email or web address] Initial Review Date: 04/11/2020 Generated: 04/14/20 3:59 pm Comments DCP- Discharge Planning Updated by [email or web address]: Maranda Garcia on 04/14/20 1:[address] CM contacted Nahun with [facility] for portable O2 @4L [place]. E-faxed required information to [facility]. CM met with patient regarding DC needs/plans. Alert/oriented. Patient states the only thing he needs is portable O2. CM contacted Jose, with [facility] for a walk test. Patient states his , Yessy Hdez [phone], will drive him home. CM instructed to wait on the walk test and see if he qualifies for portable, before he goes home, he is in agreement to this. Patient states he has not been able to get outside or able to do much since his lungs have been bad. PCP: Liana Moncada APRN, with Dr. Pryor. DME: walker, home O2, Nebulizer, shower chair. Denies the need for HHS, Rehab, SNF. Denies being hospitalized within past 30 days. DC IMM signed, Patient choice signed. DCP- Discharge Planning Updated by [email or web address]: Ladonna Espinoza on 04/11/20 3:[address] Patient Name: ORI HDEZ Admission Status: ER Accout number: [id number] Admission Date: 04-09-2020 : 1945 Admission Diagnosis:SHORTNESS OF BREATH Attending: JENNA CARDENAS Current LOS: 2 Anticipated DC Date: Planned Disposition: Home Primary Insurance: MEDICARE A & B DC Plan - Home with . Will need a walk test to qualify for portable oxygen Discharge Planning Comments: CM met with patient to discuss discharge planning/needs. States he lives with his spouse. States he ambulates with a walker. States he has home oxygen that he wears mostly at night on 2-3 liters NC. States he does not have portable oxygen. He will need a walk test and order for portable oxygen on discharge. He receives his oxygen supplies from [facility], [facility] signed. I discussed rehab, SNF, home health and additional DME needs. He declines need except for possible portable oxygen. CM will continue to follow and assist with discharge planning/needs. Set Up Mechanic Crown Assembly Machine: Ladonna Espinoza DCPIA - Discharge Planning Initial Assessment Updated by [email or web address]: Ladonna Espinoza on 04/11/20 4:15 pm * Is the patient Alert and Oriented? Yes * How many steps to enter\exit or inside your home? 2/0 * PCP Dr. Pryor * Preadmission Environment Home with Family * ADLs Partial Dependent * Partial ADLs (Assistance needed) Ambulation * Equipment Nebulizer Oxygen Walker * List name and contact numbers for known caregivers / representatives who currently or will assist patient after discharge: Yessy Hdez - [phone] * Verbal permission to speak to the caregivers and representatives has been obtained from the patient. Yes * Community resources currently utilized None * Please name any agencies selected above. [facility] for oxygen needs * Additional services required to return to the preadmission environment? No * Can the patient safely return to the preadmission environment? Yes * Has this patient been hospitalized within the prior 30 days at any hospital? No Coverage Notice Reviewer: [id number] - Ladonna Espinoza Notice Issued Date-Time: 04/11/2020 16:22 Notice Type: IM Discharge Notice Notice Delivered To: Patient Relationship to Patient: Self Weapons And Tactics Instructor Name: Delivery Method: HAND - Hand Delivered Dalia Days: Prior Verbal Notification: Recipient Understood Notice: Yes Recipient Signature: Yes Med Rec Note Co-signed by Attending: Coverage Notice Comment: [facility] PATIENT Reviewer: [id number] - Maranda Garcia Notice Issued Date-Time: 04/14/2020 13:55 Notice Type: IM Discharge Notice Notice Delivered To: Patient Relationship to Patient: Self Weapons And Tactics Instructor Name: Ori Whitfrancois Delivery Method: HAND - Hand Delivered Dalia Days: Prior Verbal Notification: Recipient Understood Notice: Recipient Signature: Yes Med Rec Note Co-signed by Attending: Coverage Notice Comment: DC IMM signed/given to patient. Original to chart. Last DP export: 04/14/20 1:50 p Patient Name: ORI HDEZ Page [id number] at 1500 All edits/amendments must be made on the electronic document DICTATION DATE: 04/14/201458 REPAIR ELECTRIC MOTOR ASSEMBLER: NERI 04/14/201458 RPT#: [id number] DC DATE: STATUS: ADM IN [facility] [address] [place] [address] END OF REPORT
--- NOTE | 2020-04-14 15:44 | NUR ---
OT NOTE: PT COMPLETED SUPINE TO SIT WITH SBA. PT COMPLETED SIT TO STAND WITH CGA. PT COMPLETED BEBETO/DOFF SOCKS AND SHOES AT EOB WITH SBA. PT COMPLETED ADL MOB WITH CGA LLE IS PRONE TO "GIVE OUT." PT COMPLETED UB HYGIENE BATHING TASKS AT EOB WITH SETUP. [phone] ALEJO DASILVA COTA
--- NOTE | 2020-04-14 16:12 | MORECARE ---
CASE MANAGEMENT DISCHARGE SUMMARY PATIENT: ORI HDEZ UNIT: [id number] ADM DATE: 04/09/20 AGE: 74 : 44 SEX: M ROOM/BED: D.9002 AUTHOR: MICHELINE ALBRECHT PHYSICIAN: REFERRING PHYSICIAN: JENNA CARDENAS DO DATE OF SERVICE: 04/14/20 Discharge Plan Patient Name: ORI HDEZ Facility: [facility]:[place] : 1945 Planned Disposition: Home Anticipated Discharge Date: 04/14/20 Discharge Date: Expected LOS: 5 Initial Reviewer: [email or web address] Initial Review Date: 04/11/2020 Generated: 04/14/20 5:11 pm Comments DCP- Discharge Planning Updated by [email or web address]: Maranda Garcia on 04/14/20 3:[address] DC Plan: O2 order was signed by Dr. Duke. Order faxed to [facility] Patient, patient and nurse informed of same. CM contacted Nahun with [facility] Patient for portable O2 @4L [place]. E-faxed required information to [facility] Patient. CM met with patient regarding DC needs/plans. Alert/oriented. Patient states the only thing he needs is portable O2. CM contacted Jose, with [facility] for a walk test. Patient states his , Yessy Hdez [phone], will drive him home. CM instructed to wait on the walk test and see if he qualifies for portable, before he goes home, he is in agreement to this. Patient states he has not been able to get outside or able to do much since his lungs have been bad. PCP: Liana Moncada APRN, with Dr. Pryor. DME: walker, home O2, Nebulizer, shower chair. Denies the need for HHS, Rehab, SNF. Denies being hospitalized within past 30 days. DC IMM signed, Patient choice signed. DCP- Discharge Planning Updated by [email or web address]: Ladonna Espinoza on 04/11/20 3:[address] Patient Name: ORI HDEZ Admission Status: ER Accout number: [id number] Admission Date: 04-09-2020 : 1945 Admission Diagnosis:SHORTNESS OF BREATH Attending: JENNA CARDENAS Current LOS: 2 Anticipated DC Date: Planned Disposition: Home Primary Insurance: MEDICARE A & B DC Plan - Home with . Will need a walk test to qualify for portable oxygen Discharge Planning Comments: CM met with patient to discuss discharge planning/needs. States he lives with his spouse. States he ambulates with a walker. States he has home oxygen that he wears mostly at night on 2-3 liters NC. States he does not have portable oxygen. He will need a walk test and order for portable oxygen on discharge. He receives his oxygen supplies from [facility], [facility] signed. I discussed rehab, SNF, home health and additional DME needs. He declines need except for possible portable oxygen. CM will continue to follow and assist with discharge planning/needs. Statement Clerks Manager: Ladonna Espinoza DCPIA - Discharge Planning Initial Assessment Updated by [email or web address]: Ladonna Espinoza on 04/11/20 4:15 pm * Is the patient Alert and Oriented? Yes * How many steps to enter\exit or inside your home? 2/0 * PCP Dr. Pryor * Preadmission Environment Home with Family * ADLs Partial Dependent * Partial ADLs (Assistance needed) Ambulation * Equipment Nebulizer Oxygen Walker * List name and contact numbers for known caregivers / representatives who currently or will assist patient after discharge: Yessy Hdez - [phone] * Verbal permission to speak to the caregivers and representatives has been obtained from the patient. Yes * Community resources currently utilized None * Please name any agencies selected above. [facility] for oxygen needs * Additional services required to return to the preadmission environment? No * Can the patient safely return to the preadmission environment? Yes * Has this patient been hospitalized within the prior 30 days at any hospital? No Coverage Notice Reviewer: [id number] - Ladonna Espinoza Notice Issued Date-Time: 04/11/2020 16:22 Notice Type: IM Discharge Notice Notice Delivered To: Patient Relationship to Patient: Self Auto Body Customizer Name: Delivery Method: HAND - Hand Delivered Dalia Days: Prior Verbal Notification: Recipient Understood Notice: Yes Recipient Signature: Yes Med Rec Note Co-signed by Attending: Coverage Notice Comment: [facility] PATIENT Reviewer: [id number] - Maranda Garcia Notice Issued Date-Time: 04/14/2020 13:55 Notice Type: IM Discharge Notice Notice Delivered To: Patient Relationship to Patient: Self Auto Body Customizer Name: Ori Hdez Delivery Method: HAND - Hand Delivered Dalia Days: Prior Verbal Notification: Recipient Understood Notice: Recipient Signature: Yes Med Rec Note Co-signed by Attending: Coverage Notice Comment: DC IMM signed/given to patient. Original to chart. Last DP export: 04/14/20 2:00 p Patient Name: ORI HDEZ Page 25126 at 1612 All edits/amendments must be made on the electronic document DICTATION DATE: 04/14/20 161 BRAND MGR: NERI 04/14/20 161 RPT#: [id number] DC DATE: STATUS: ADM IN [facility] [address] [place] [address] END OF REPORT
--- NOTE | 2020-04-14 17:13 | NUR ---
ALERT AND ORIENTED X4. SITTING ON SIDE OF BED. PORTABLE OXYGEN DELIVERED. DISCHARGE INSTRUCTIONS GIVEN VERBALLY AND WRITTEN. DISCHARGE PAPERS SIGNED ON CHART. DC RT HAND IV TIP INTACT. WAITING FOR RIDE TO ARRIVE. DENIES ANY NEEDS AT THIS TIME. CONTINUE PLAN OF CARE AND SAFETY PRECAUTIONS.
--- NOTE | 2020-04-14 18:03 | NUR ---
RIDE ARRIVES. ESCORT TO RIDE VIA WHEELCHAIR. REMAINS FREE FROM INJURY.
--- NOTE | 2020-04-15 09:23 | MORECARE ---
CASE MANAGEMENT DISCHARGE SUMMARY PATIENT: ORI HDEZ UNIT: [id number] ADM DATE: 04/09/20 AGE: 74 : 44 SEX: M ROOM/BED: D.9319 AUTHOR: MICHELINE ALBRECHT PHYSICIAN: REFERRING PHYSICIAN: JENNA CARDENAS DO DATE OF SERVICE: 04/15/20 Discharge Plan Patient Name: ORI HDEZ Facility: [facility]:[place] : 1945 Planned Disposition: Home Anticipated Discharge Date: 04/14/20 Discharge Date: 04/14/2020 Expected LOS: 5 Initial Reviewer: [email or web address] Initial Review Date: 04/11/2020 Generated: 04/15/20 10:22 am Comments DCP- Discharge Planning Updated by [email or web address]: Maranda Garcia on 04/14/20 3:[address] DC Plan: O2 order was signed by Dr. Duke. Order faxed to [facility] Patient, patient and nurse informed of same. CM contacted Nahun with [facility] Patient for portable O2 @4L NC. E-faxed required information to [facility] Patient. CM met with patient regarding DC needs/plans. Alert/oriented. Patient states the only thing he needs is portable O2. CM contacted Jose, with [facility] for a walk test. Patient states his , Yessy Hdez [phone], will drive him home. CM instructed to wait on the walk test and see if he qualifies for portable, before he goes home, he is in agreement to this. Patient states he has not been able to get outside or able to do much since his lungs have been bad. PCP: Liana Moncada APRN, with Dr. Pryor. DME: walker, home O2, Nebulizer, shower chair. Denies the need for HHS, Rehab, SNF. Denies being hospitalized within past 30 days. DC IMM signed, Patient choice signed. DCP- Discharge Planning Updated by [id number]: Ladonna Espinoza on 04/11/20 3:[address] Patient Name: ORI HDEZ Admission Status: ER Accout number: [id number] Admission Date: 04-09-2020 : 1945 Admission Diagnosis:SHORTNESS OF BREATH Attending: JENNA CARDENAS Current LOS: 2 Anticipated DC Date: Planned Disposition: Home Primary Insurance: MEDICARE A & B DC Plan - Home with . Will need a walk test to qualify for portable oxygen Discharge Planning Comments: CM met with patient to discuss discharge planning/needs. States he lives with his spouse. States he ambulates with a walker. States he has home oxygen that he wears mostly at night on 2-3 liters NC. States he does not have portable oxygen. He will need a walk test and order for portable oxygen on discharge. He receives his oxygen supplies from [facility] Patient, AMARIL[facility] signed. I discussed rehab, SNF, home health and additional DME needs. He declines need except for possible portable oxygen. CM will continue to follow and assist with discharge planning/needs. Lead Quality Technician: Ladonna Espinoza [facility] - Discharge Planning Initial Assessment Updated by [email or web address]: Ladonna Epsinoza on 04/11/20 4:15 pm * Is the patient Alert and Oriented? Yes * How many steps to enter\exit or inside your home? 2/0 * PCP Dr. Pryor * Preadmission Environment Home with Family * ADLs Partial Dependent * Partial ADLs (Assistance needed) Ambulation * Equipment Nebulizer Oxygen Walker * List name and contact numbers for known caregivers / representatives who currently or will assist patient after discharge: Yessy Ketty - [phone] * Verbal permission to speak to the caregivers and representatives has been obtained from the patient. Yes * Community resources currently utilized None * Please name any agencies selected above. [facility] Patient for oxygen needs * Additional services required to return to the preadmission environment? No * Can the patient safely return to the preadmission environment? Yes * Has this patient been hospitalized within the prior 30 days at any hospital? No Coverage Notice Reviewer: [id number] - Ladonna Espinoza Notice Issued Date-Time: 04/11/2020 16:22 Notice Type: IM Discharge Notice Notice Delivered To: Patient Relationship to Patient: Self Nuclear Weapons Custodian Name: Delivery Method: HAND - Hand Delivered Dalia Days: Prior Verbal Notification: Recipient Understood Notice: Yes Recipient Signature: Yes Med Rec Note Co-signed by Attending: Coverage Notice Comment: [facility] PATIENT Reviewer: [email or web address] Gary Garcia Notice Issued Date-Time: 04/14/2020 13:55 Notice Type: IM Discharge Notice Notice Delivered To: Patient Relationship to Patient: Self Nuclear Weapons Custodian Name: Ori Hdez Delivery Method: HAND - Hand Delivered Dalia Days: Prior Verbal Notification: Recipient Understood Notice: Recipient Signature: Yes Med Rec Note Co-signed by Attending: Coverage Notice Comment: DC IMM signed/given to patient. Original to chart. Last DP export: 04/14/20 3:12 p Patient Name: ORI HDEZ Page [phone] at 0923 All edits/amendments must be made on the electronic document DICTATION DATE: 04/15/20921 POLICE MAGISTRATE: NERI 04/15/20921 RPT#: [id number] DC DATE:04/14/20 STATUS: DIS IN [facility] [address] [place] [address] END OF REPORT
== END 2020-04-14 18:04 | disposition home or self-care (01) | DRG 291 ==
LOC: D.ER 14:03 → D.M2 18:38
PROVIDERS: Family Medicine; ADMIT Family Medicine; ATTEND Family Medicine
DX: I11.0 Hypertensive heart disease with heart failure (principal); J96.21 Acute and chronic respiratory failure with hypoxia; J18.9 Pneumonia, unspecified organism; J44.1 Chronic obstructive pulmonary disease with (acute) exacerbation; I24.8 Other forms of acute ischemic heart disease; J98.11 Atelectasis; I50.33 Acute on chronic diastolic (congestive) heart failure; I25.10 Atherosclerotic heart disease of native coronary artery without angina pectoris; I48.91 Unspecified atrial fibrillation; D50.9 Iron deficiency anemia, unspecified; N40.0 Benign prostatic hyperplasia without lower urinary tract symptoms; Z86.73 Personal history of transient ischemic attack (TIA), and cerebral infarction without residual deficits; Z87.891 Personal history of nicotine dependence; I27.20 Pulmonary hypertension, unspecified

== ENCOUNTER → 2020-05-26 13:08 | Outpatient (CLI) | payer MEDICARE ==
[2020-04-10 12:45] VITALS: BMI 23.5
[~2020-05-26 13:08] MED LIST changes: +LEVOFLOXACIN500 MG PO; +PREDNISONE20 MG PO; +VENTOLIN HFA [SP8 GM INH
--- NOTE | 2020-05-26 16:08 | NUR ---
PT WAS HERE FOR PFT AND 6MIN WALK TEST, UPON ARRIVAL TO DEPARTMENT PT WAS TAKEN OFF OXYGEN TO GET INTO BOX, PTS SPO2 WAS 64%, RECHECKED WITH ANOTHER MONITOR, PLACE ON 2L/M, THEN UP TO 3 AND UP TO 4L/M. PT SEEMED TO STAY AROUND 84-86%. TEXT DR CHANEY, NO ANSWER, CALLED DR JORGE IN ICU AND EXPLAINED WHAT WAS GOING ON. HE ASK SEVERAL QUESTIONS, WAS PT ON O2, BREATHING TXS, EXPLAINED THAT HE HAD BEEN IN 1 WEEK AGO TO SEE BESSIE KIRKPATRICK. DR JORGE LOOKED PT UP ON COMPUTER AND IF PT DID NOT WANT TO GO TO HOSPITAL ER THEN GO HOME, STAYH ON OXYGEN AND MAKE AN EMERGENT VISIT WITH DR CHANEY IN THE NEXT DAY. PTS WAS IN THERE WITH ME THE WHOLE TIME AND THEY CONCURRED. CALLED OFFICE AND THEY WERE TO CALL PT.
== END | disposition home or self-care (01) ==
LOC: D.RT 13:08
PROVIDERS: ATTEND Internal Medicine Pulmonary Disease
DX: J44.9 Chronic obstructive pulmonary disease, unspecified (principal); I10 Essential (primary) hypertension; E78.5 Hyperlipidemia, unspecified; Z86.73 Personal history of transient ischemic attack (TIA), and cerebral infarction without residual deficits

== ENCOUNTER 2020-05-27 11:33 | Inpatient (IN) | payer MEDICARE ==
[~2020-05-27] VITALS: Ht 172.7 cm; Wt 66.8 kg
--- NOTE | ~2020-05-27 | HEMODYNAMI ---
PATIENT:ORI MONSALVE MEDICAL RECORD: [id number] : 43 LOCATION[id number] ADMISSION DATE: 05/27/20 Generatedon:05/29/202014:11 Patient name: ORI MONSALVE Patient #: [id number] SSN: [id number] : 1945 Date of study: 05/29/2020 Page: Of Hemodynamic Procedure Report Patient Data Patient Demographics Procedure consent was obtained First Name: ORI Gender: Male Last Name: BELLO : 1945 Middle Initial: ERIBERTO Age: 74 year(s) Patient #: [id number] Race: SSN: [id number] Additional ID: [id number] Contact details [address]: [address] [place] [address] State: [place] City: [place] Zip code: [address] Past Medical History Allergies: No known allergies Admission Admission Data Admission Date: 05/27/2020 Admission Time: 11:33 Arrival Date: 05/27/2020 Arrival Time: 11:33 Admit Source: Other Insurance Payor: Medicare Room #: D.2136 PSYCHIATRIC #: [id number] Height (in.): 67.72 BSA: 1.8 (m2) Height (cm.): 172 BMI: 22.99 (kg/m2) Weight (lbs.): 149.92 Weight (kg.): 68 Lab Results Lab Result Date: 05/29/2020 Lab Result Time: 0:00 CBC Name Units Result Min Max Hematocrit % 41.5 -*(----)-- 42 54 Hemoglobin g/dl 12.5 *-(----)-- 13.5 17.5 Procedure Procedure Types Cath Procedure Diagnostic Procedure Cardioversion External IMELDA Procedure Description Procedure Date Procedure Date: 05/29/2020 Procedure Start Time: 13:52 Procedure End Time: 14:09 Procedure Staff Name Function Haris Thompson MD Performing Physician Yoly Lino RN Nurse Manas Parker RT Monitor Carol pU RT Monitor Fawad Carson Rios CRNA Additional personnel Michelle Fernandez Head Greenskeeper Procedure Data Cath Procedure Fluoroscopy Diagnostic fluoroscopy Total fluoroscopy Time: 0 time: 0 min min Diagnostic fluoroscopy Total fluoroscopy dose: 0 dose: 0 mGy mGy Estimated blood loss: 0 ml Procedure Complications No complications Procedure Medications Medication Administration Route Dosage Oxygen 6 l/min Hurricaine [place] P.O. 1 Sprays Refer to Anesthesia Notes for Sedation Medications Hemodynamics Rest BSA: 1.8 (m2) O2 Consumption: Estimated: 223.01 (ml/min) O2 Consumption indexed: Estimated:123.89 (ml/min/m) Heart Rate: 94 (bpm) Snapshots Pre Cath Intra NCS Post Cath Vital Signs Time Heart Resp SPO2 etCO2 NIBP (mmHg) Rhythm Pain Sedation Rate (ipm) (%) (mmHg) Status Level (bpm) 13:49:34 106 27 91 0 133/77(100) A-Fib (Missing) 10(A) 13:53:49 98 20 88 0 109/60(83) NSR (Missing) 9(A) 13:58:24 81 20 91 0 90/48(68) A-Fib (Missing) 9(A) 14:02:26 86 23 91 0 98/57(74) NSR (Missing) 9(A) 14:06:34 75 9 91 0 102/50(81) NSR (Missing) 10(A) Medications Time Medication Route Dose Verified Delivered Reason Notes Effectiv eness by by 13:52:49 Oxygen NC-high 6 Haris Frederick used for flow l/min St Ottoniel Lino RN procedure MD 13:53:01 Hurricaine P[address]O. 1 Haris Frederick Per [place] Sprays St Ottoniel Lino RN physician 13:53:04 Refer to Haris Frederick Anesthesia St Ottoniel Lino RN Notes for Sedation Medications Procedure Log Time Note 13:32:00 Yoly Lino RN sent for patient. Start room use. 13:35:37 Informed consent obtained and on chart 13:36:02 Patient Height : 67.72 inches 13:36:02 Patient Weight : 149.92 lbs 13:37:15 Procedure Status Cardioversion, IMELDA. 13:37:20 Plan of Care:Hemodynamics will remain stable., Cardiac rhythm will remain stable., Comfort level will be maintained., Respiratory function will remain adequate., Patient/ family verbilizes understanding of procedure., Procedure tolerated without complication., Recovers from procedure without complications.. 13:37:22 Time tracking: Regular hours (M-F 7:00 - 5:00) 13:37:42 H&P Date Dictated: 05/27/2020 Within 30 days and on chart., ER History on chart.. 13:37:49 Patient allergic to No known allergies 13:38:21 Lab Result : Hemoglobin 12.5 g/dl 13:38:21 Lab Result : Hematocrit 41.5 % 13:40:58 Fawad Byrd Jr CHARACTER IMPERSONATOR present and monitoring patient for TIVA. 13:42:00 Patient arrived from Med II to CCL 3. Patient remains on bed/stretcher for procedure. 13:42:01 Warm blankets applied, and teresa hugger turned on for patient comfort. 13:42:02 Correct patient and procedure confirmed by team. 13:42:02 ECG and BP/O2 sat monitors applied to patient. 13:42:06 Pre-procedure instructions explained to patient. 13:42:06 Pre-op teaching completed and patient verbalized understanding. 13:44:40 Full Disclosure recording started 13:46:19 Family in patients room. 13:46:20 Patient NPO since Midnight. 13:46:26 Is patient on blood thinner?No 13:46:28 Patient diabetic? No. 13:46:43 Previous problem with sedation/anesthesia? No ? 13:46:45 Snore? Yes 13:46:46 Sleep apnea? No 13:46:46 Deviated septum? No 13:46:47 Opens mouth fully? Yes 13:46:47 Sticks out tongue? Yes 13:46:55 Airway obstruction? Yes copd 13:47:32 Dentures? No ? 13:47:59 IV patent on arrival in left wrist with 0.9% NaCl at KVO. 13:48:01 Lab results completed and on chart. 13:48:11 Alarms reviewed by RSagrario N. 13:48:13 Sharps counted by scrub and verified by R.N. 13:48:22 Quick Combo opened to sterile field. 13:48:34 Vital chart was started 13:48:38 Rhythm: atrial fibrillation WITH PACER 13:49:17 Baseline sample Acquired. 13:51:30 --------ALL STOP TIME OUT------ 13:51:31 Final Timeout: patient, procedure, and site verified with staff and physician. All members of the team are in agreement. 13:51:35 Physical assessment completed. ASA score P 3 - A patient with severe systemic disease as per Haris Thompson MD. 13:51:40 Sedation plan: TIVA Medication:Propofol 13:52:13 Procedure started. 13:52:16 IMELDA 13:52:25 [facility] Head Usher present for IMELDA. 13:52:49 Oxygen 6 l/min NC-high flow was administered by Yoly Lino RN; used for procedure; Verbal order read back and verified. 13:53:01 Hurricaine [place] 1 Sprays P.O. was administered by Yoly Lino RN; Per physician; Verbal order read back and verified. 13:53:04 Refer to Anesthesia Notes for Sedation Medications was administered by Yoly Lino RN; ; Verbal order read back and verified. 13:53:08 IMELDA started. 13:56:24 IMELDA completed. 13:56:26 ------Cardioversion------ 13:56:27 Quick combo pads placed on patients chest and back. 13:57:22 Defibrillator synced and charged to 200 Joules. 13:57:30 Shock delivered. 13:59:53 Unsuccessful cardioversion. 13:59:57 Defibrillator synced and charged to 360 Joules. 14:00:06 Shock delivered. 14:00:47 Patient cardioverted to sinus rhythm , paced. 14:02:12 Procedure ended.(Physican Out) 14:04:23 Fluoroscopy time 00.00 minutes. 14:04:25 Fluoroscopy dose: 0 mGy 14:04:25 Flurop Dose total: 0 14:04:26 Dose Area Product 0 mGy/cm. 14:06:09 Post-procedure physical assessment completed. ASA score P 3 - A patient with severe systemic disease as per Haris Thompson MD. 14:06:13 Estimated blood loss: 0 ml 14:06:14 Post procedure instruction explained to patient.Patient verbalizes understanding. 14:06:14 Patient needs reinforcement of post procedure teaching. 14:06:31 Procedure and supply charges have been captured, reviewed, submitted and are correct. 14:06:33 Procedure Complication : No complications 14:06:41 IMELDA Findings: IMELDA w/ cardioversion: no left atrial clot noted (proceed with cardioversion) 14:06:43 Operative report dictated upon procedure completion. 14:06:43 See physician's report for complete and final results. 14:06:46 Report given to [facility]. 14:06:49 Patient transfered to [facility] with Bed. 14:09:31 Vital chart was stopped 14:09:33 Procedure ended. 14:09:33 Full Disclosure recording stopped 14:09:37 End room use (Document Last) 14:10:13 End room use (Document Last) 14:10:45 End room use (Document Last) Device Usage Item Manufacture Quantity Catalog Hospital Part Current Minimal Lot# / Name Number Charge Number Stock Stock [facility] Code [facility] Webspy 1 [id number] Combo Signature Audit [place] Stage Time Signature Unsigned Intra-Procedure 05/29/2020 Carol Up 2:10:13 PM RT(R) Intra-Procedure 05/29/2020 Yoly Lino RN 2:10:45 PM Intra-Procedure 05/29/2020 Haris Barton 2:11:25 PM Ottoniel [facility] [address] [place] [address]
[~2020-05-27 11:33] MED LIST changes: -METOPROLOL TAR100 M1 PO; +METOPROLOL TART50 MG PO
[2020-05-27 12:00] VITALS: BP 119/76
--- NOTE | 2020-05-27 12:15 | NUR ---
RECIEVED PT TO ROOM. RR EVEN AND UNLABORED. PT STATES HE GETS SOB EASILY. SATS ARE 87% ON 4L. RESPIRATORY CALLED AND ON THERE WAY TO SEE PT. BED LOCKED AND IN LOWEST POSITION, CALL LIGHT WITHIN REACH. WILL CTM
[2020-05-27 12:40] VITALS: BP 119/76; BMI 22.8
[2020-05-27 13:48] LABS: BASOPHILS 0.3 % (0-2); EOSINOPHILS 2.2 % (0-7); HEMATOCRIT 40.7 % (42.0-54.0); HEMOGLOBIN 12.5 g/dL (13.5-17.5); IMMATURE GRANULOCYTES 0.2 % (0-5); LYMPHOCYTES 12.6 % (15-50); MCH 28.6 pg (26.0-34.0); MCHC 30.7 g/dL (31.0-37.0); MCV 93.1 fL (80.0-100.0); MEAN PLATELET VOLUME 9.8 fL (7.4-10.4); MONOCYTES 7.3 % (2-11); NEUTROPHILS 77.4 % (40-80); PLATELET COUNT 161 10x3/uL (130-400); RBC 4.37 10x6/uL (4.20-6.10); RDW 18.8 % (11.5-14.5); WBC 6.4 10x3/uL (4.8-10.8)
[2020-05-27 13:57] LABS: ANION GAP 8.1 mmol/L (8-16); BILIRUBIN - TOTAL 0.58 mg/dL (0.2-1.3); CALCIUM 8.6 mg/dL (8.5-10.1); CARBON DIOXIDE 28.8 mmol/L (21.0-32.0); CREATININE - SERUM 1.2 mg/dL (0.6-1.3); PHOSPHOROUS 2.5 mg/dL (2.5-4.9); POTASSIUM - SERUM 3.9 mmol/L (3.5-5.1); PROTEIN - SERUM 7.4 g/dL (6.4-8.2)
[2020-05-27 14:38] LABS: APTT 29.2 SECONDS (22.8-39.4); INR 1.11 (0.85-1.17); PROTIME 14.2 SECONDS (11.6-15.0)
[2020-05-27 14:45] LABS: CKMB 1.8 U/L (0.0-3.6); CREATINE KINASE 31 UL (21-232)
[2020-05-27 14:54] LABS: TROPONIN-I 0.138 ng/mL (0.000-0.060)
--- NOTE | 2020-05-27 15:33 | NUR ---
20G IV INSERTED TO LEFT FOREARM X2 ATTEMPTS. PT TOLERATED VERY WELL. KYLEE, CARDIOLOGY ZIPPER REPAIRER AT BEDSIDE.
[2020-05-27 16:00] VITALS: BP 144/76
--- NOTE | 2020-05-27 17:11 | NUR ---
RECEIVED TELEPHONE ORDERS PER KYLEE KIRKPATRICK TO ORDER CARDIOVERSION FOR TOMORROW. ORDER PLACED.
[2020-05-27 20:08] VITALS: BP 144/56
[2020-05-27 20:43] VITALS: BP 144/56
[2020-05-27 21:22] LABS: CKMB 1.7 U/L (0.0-3.6); CREATINE KINASE 28 UL (21-232)
[2020-05-27 21:24] LABS: TROPONIN-I 0.297 ng/mL (0.000-0.060)
--- NOTE | 2020-05-27 22:21 | NUR ---
PT LYING IN BED AWAKE ALERT AND ORIENTED x4. NO SIGNS OR SYMPTOMS OF DISTRESS NOTED. RESPIRATIONS EVEN AND UNLABORED. PT HAS NO COMPLAINTS AT THIS TIME. CALL LIGHT AND OTHER PERSONAL ITEMS WITH IN REACH. PT ENCOURAGED TO CALL FOR HELP WHEN NEEDED. WILL CONTINUE TO MONITOR
[2020-05-28 00:14] VITALS: BP 94/58
[2020-05-28 03:00] LABS: BASOPHILS 0.3 % (0-2); EOSINOPHILS 2.1 % (0-7); HEMATOCRIT 41.5 % (42.0-54.0); HEMOGLOBIN 12.5 g/dL (13.5-17.5); IMMATURE GRANULOCYTES 0.2 % (0-5); LYMPHOCYTES 13.7 % (15-50); MCHC 30.1 g/dL (31.0-37.0); MCV 92.8 fL (80.0-100.0); MEAN PLATELET VOLUME 9.7 fL (7.4-10.4); MONOCYTES 8.8 % (2-11); NEUTROPHILS 74.9 % (40-80); PLATELET COUNT 159 10x3/uL (130-400); RBC 4.47 10x6/uL (4.20-6.10); RDW 18.7 % (11.5-14.5); WBC 6.6 10x3/uL (4.8-10.8)
--- NOTE | 2020-05-28 03:10 | NUR ---
pt resting comfortably with eyes closed. no signs of distress noted. no complaints at this time. easily awaken with voice stimulation. call light and other personal items with in reach. will continue to monitor
[2020-05-28 03:35] LABS: ALBUMIN 2.8 g/dL (3.4-5.0); ALKALINE PHOSPHATASE 186 U/L (30-120); ALT (SGPT) 13 U/L (10-68); BILIRUBIN - TOTAL 0.68 mg/dL (0.2-1.3); CALC OSMOLALITY 275 mosm/kg (275-300); CALCIUM 8.7 mg/dL (8.5-10.1); CARBON DIOXIDE 25.4 mmol/L (21.0-32.0); CHLORIDE - SERUM 104 mmol/L (98-107); CKMB 1.4 U/L (0.0-3.6); CREATINE KINASE 30 UL (21-232); CREATININE - SERUM 1.2 mg/dL (0.6-1.3); GLUCOSE 125 mg/dL (74-106); MAGNESIUM - SERUM 2.1 mg/dL (1.8-2.4); POTASSIUM - SERUM 3.7 mmol/L (3.5-5.1); PROTEIN - SERUM 7.2 g/dL (6.4-8.2); SODIUM 137 mmol/L (136-145); UREA NITROGEN 14 mg/dL (7-18); eGFR NON AFRICAN AMERICAN 63 mL/min (90-120)
[2020-05-28 03:36] LABS: TROPONIN-I 0.127 ng/mL (0.000-0.060)
[2020-05-28 05:35] VITALS: BP 131/54
[2020-05-28 09:40] VITALS: BP 95/65
[2020-05-28 13:31] VITALS: BP 95/65
[2020-05-28 13:34] VITALS: Ht 172.7 cm; Wt 66.8 kg
[2020-05-28 18:56] VITALS: BP 135/62
--- NOTE | 2020-05-28 19:07 | NUR ---
EVENING ROUNDS COMPLETE. PT SITTING UP IN BED. NO SIGNS OF DISTRESS. PT DENIES ANY PAIN OR NEEDS AT THIS TIME. CL IN REACH, BED IN LOWEST POSITION.
--- NOTE | 2020-05-28 19:30 | NUR ---
REPORT RECEIVED, WILL CONTINUE POC. PATIENT AAOX4, SITTING UP IN BED. NO S/S OF DISTRESS OBSERVED, RR EVEN AND UNLABORED ON 5L O2 VIA NC. PIV TO LT FA, PATENT, CL, DRSG C/D/I. PATIENT DENIES NEEDS AT THIS TIME. CL IN REACH, BED LOCKED AND LOWERED. WILL CTM.
[2020-05-28 20:00] VITALS: BP 132/63
[2020-05-29] VITALS: BP 125/64
--- NOTE | 2020-05-29 03:56 | NUR ---
I have reviewed this patient and I concur with the Shift Assessment completed by the Licensed Practical Nurse today this shift.
[2020-05-29 04:00] VITALS: BP 133/61
[2020-05-29 06:32] LABS: BASOPHILS 0.2 % (0-2); EOSINOPHILS 2.9 % (0-7); HEMATOCRIT 38.5 % (42.0-54.0); HEMOGLOBIN 11.6 g/dL (13.5-17.5); MCH 28.1 pg (26.0-34.0); MCHC 30.1 g/dL (31.0-37.0); MCV 93.2 fL (80.0-100.0); MEAN PLATELET VOLUME 9.2 fL (7.4-10.4); MONOCYTES 8.6 % (2-11); NEUTROPHILS 75.3 % (40-80); PLATELET COUNT 149 10x3/uL (130-400); RBC 4.13 10x6/uL (4.20-6.10); RDW 18.9 % (11.5-14.5); WBC 5.8 10x3/uL (4.8-10.8)
[2020-05-29 06:51] LABS: ALBUMIN 2.7 g/dL (3.4-5.0); ANION GAP 9.9 mmol/L (8-16); BILIRUBIN - TOTAL 0.7 mg/dL (0.2-1.3); CALCIUM 8.5 mg/dL (8.5-10.1); CARBON DIOXIDE 26.9 mmol/L (21.0-32.0); CREATININE - SERUM 1.1 mg/dL (0.6-1.3); POTASSIUM - SERUM 3.8 mmol/L (3.5-5.1); PROTEIN - SERUM 6.9 g/dL (6.4-8.2)
--- NOTE | 2020-05-29 07:10 | NUR ---
REPORT RECEIVED FROM DIRECTOR INSTRUMENTATION ANDPATIENT CARE ASSUMED. PATIENT LAYING IN BED AWAKE, ALERT AND ORIENTED X 4. PATIENT IS STABLE AND VSS. PATIENT DENIES ANY NEEDS OR PAIN. WILL CONTINUE WITH PLAN OF CARE. SR UPX 2 BED IN LOW POSITION AND CALL LIGHT IN REACH.
[2020-05-29 08:31] VITALS: BP 126/59
[2020-05-29 12:24] VITALS: BP 128/62
[2020-05-29 14:29] LABS: BILIRUBIN NEGATIVE (NEGATIVE); GLUCOSE NEGATIVE (NEGATIVE); KETONE NEGATIVE (NEGATIVE); NITRITE NEGATIVE (NEGATIVE); SPECIFIC GRAVITY 1.015 (1.005-1.020)
[2020-05-29 14:30] LABS: BACTERIA FEW /hpf (NEGATIVE); EPITHELIAL CELLS RARE /hpf (0-5); RED CELLS - URINE NONE SEEN /hpf (0-5); WHITE CELLS - URINE RARE /hpf (NEGATIVE)
--- NOTE | 2020-05-29 15:30 | NUR ---
PATIENT IS STABLE AND UNCHANGED. PATIENT DENIES ANY NEEDS OR PAIN. WILL CONTINUE TO MONITOR. SR UPX 2 BED IN LOW POSITION AND CALL LIGHT IN REACH.
[2020-05-29 20:00] VITALS: BP 146/68
[2020-05-30] VITALS: BP 121/48
[2020-05-30 04:00] VITALS: BP 123/68
[2020-05-30 05:10] LABS: BASOPHILS 0.2 % (0-2); EOSINOPHILS 3.8 % (0-7); HEMATOCRIT 37.5 % (42.0-54.0); HEMOGLOBIN 11.3 g/dL (13.5-17.5); IMMATURE GRANULOCYTES 0.3 % (0-5); LYMPHOCYTES 13.4 % (15-50); MCH 28.1 pg (26.0-34.0); MCHC 30.1 g/dL (31.0-37.0); MCV 93.3 fL (80.0-100.0); MEAN PLATELET VOLUME 9.5 fL (7.4-10.4); MONOCYTES 11.2 % (2-11); NEUTROPHILS 71.1 % (40-80); PLATELET COUNT 155 10x3/uL (130-400); RBC 4.02 10x6/uL (4.20-6.10); RDW 19.1 % (11.5-14.5); WBC 6.3 10x3/uL (4.8-10.8)
[2020-05-30 05:31] LABS: ALBUMIN 2.6 g/dL (3.4-5.0); ANION GAP 9.5 mmol/L (8-16); BILIRUBIN - TOTAL 0.48 mg/dL (0.2-1.3); CALCIUM 8.4 mg/dL (8.5-10.1); MAGNESIUM - SERUM 1.9 mg/dL (1.8-2.4); POTASSIUM - SERUM 3.5 mmol/L (3.5-5.1); PROTEIN - SERUM 6.8 g/dL (6.4-8.2)
[2020-05-30 05:36] LABS: CREATININE - SERUM 1.6 mg/dL (0.6-1.3)
--- NOTE | 2020-05-30 08:26 | OP ---
PATIENT NAME: ORI MONSALVE MEDICAL RECORD: [id number] :43 LOCATION:D.M2 D.2136 ADMISSION DATE:05/27/20 SURGEON: FARTUN TIAN MD DATE OF OPERATION: 05/29/2020 PROCEDURE: Cardioversion. DESCRIPTION OF PROCEDURE: After general sedation via TIVA via anesthesia, transesophageal Omniplane probe was placed in the distal esophagus and proximal stomach without difficulty. FINDINGS: LVH is present. LV internal dimension is normal. LV appear to be globally hypo with more marked septal hypokinesis. Overall, LV function 35% to 40%. Aortic valve is tricuspid with good valve excursion. Left atrium is well visualized. This appears to be upper limits of normal and mildly dilated. Left atrial appendage is well visualized with good contractility via Doppler interrogation. No evidence of thrombus. Mitral valve appears normal with mild plus MR. Right-sided chambers are grossly normal. Mild TR. At the end of procedure, the transesophageal Omniplane probe was turned posteriorly and this showed minimal atherosclerotic debris in the descending aorta. TRANSINT:[id number] Voice Confirmation ID: [id number] DOCUMENT ID: [id number] FARTUN TIAN MD at 0826 CC: [id number] DICTATION DATE: 05/29/[address] WORKER: 05/29/20 1536 ADM IN [place] [id number] [place] [address]
--- NOTE | 2020-05-30 08:26 | OP ---
PATIENT NAME: ORI MONASLVE MEDICAL RECORD: [id number] :[birth year] LOCATION:D.M2 D.2136 ADMISSION DATE:05/27/20 SURGEON: FARTUN TIAN MD DATE OF OPERATION: 05/29/2020 PROCEDURE: Cardioversion. SUMMARY OF PROCEDURE: After general sedation via TIVA via anesthesia, initial synchronized shock at 200 joules did not restore normal sinus rhythm. Second shock was at 360 joules was successful in restoring atrial fibrillation to normal sinus rhythm. IMPRESSION: Successful cardioversion on Ori Monsalve. During the procedure, the patient was monitored continuously with pulse oximetry, telemetry, and noninvasive blood pressure monitoring. TRANSINT:[id number] Voice Confirmation ID: [id number] DOCUMENT ID: [id number] FARTUN TIAN MD at 0826 CC: [id number] DICTATION DATE: 05/29/20 1409 [address] WRITER: 05/29/20 1539 ADM IN [place] [id number] [place] [id number]
[2020-05-30 09:26] VITALS: BP 133/71
--- NOTE | 2020-05-30 11:08 | NUR ---
PATIENT SITTING UP IN BED WITH NO NEEDS VOICED. ON 8L HIGH FLOW. GLASSES ON. RIGHT PACEMAKER SEEN, ON HEART MONITOR SHOWING UCAF, HR 111. ON XARELTO. HAD CARDIOVERSION X 2 YESTERDAY. A/O, CALL LIGHT IN USE. NON SKID SOCKS ARE ON. REFUSED AT THIS TIME FOR LINEN CHANGES, STATES THAT HE ALREADY WASHED UP. CPOC.
--- NOTE | 2020-05-30 13:38 | NUR ---
Nutrition Follow-up: Pt reports good appetite. Ate ~75% of breakfast this AM. Denies N/V/C/D. Diet: Cardiac Wt: 150# (05/29); 150# (05/28) Last BM: 05/29 Labs noted: Ca 8.4, Alb 2.6 Meds noted: vitamin D, Lasix, Micro K, Prednisone, Protonix, electrolyte protocol -Encourage PO intake and honor food preferences within diet restrictions. -Monitor wt; noted daily wts ordered. -RD following.
[2020-05-30 14:09] VITALS: BP 129/68
[2020-05-30 17:50] VITALS: BP 131/76
--- NOTE | 2020-05-30 19:33 | NUR ---
RECIEVED UP IN BED WITH EYES CLOSED. EASILY AROUSES WITH VERBAL STIMULI. ORIENTED X4. UP AD CANELO TO B/R. O2@ 8 LITERS PER HF CANNULA. IV TO LT FA SL. PACEMAKER TO LT CHEST. BRUISING TO RT ARM. DENIES ANY NEEDS AT THIS TIME.
[2020-05-30 20:00] VITALS: BP 116/77
[2020-05-31 04:00] VITALS: BP 109/55
[2020-05-31 05:22] LABS: BASOPHILS 0.3 % (0-2); EOSINOPHILS 2.4 % (0-7); HEMATOCRIT 37.6 % (42.0-54.0); HEMOGLOBIN 11.2 g/dL (13.5-17.5); IMMATURE GRANULOCYTES 0.2 % (0-5); LYMPHOCYTES 14.7 % (15-50); MCH 27.8 pg (26.0-34.0); MCHC 29.8 g/dL (31.0-37.0); MCV 93.3 fL (80.0-100.0); MEAN PLATELET VOLUME 9.7 fL (7.4-10.4); MONOCYTES 10.5 % (2-11); NEUTROPHILS 71.9 % (40-80); PLATELET COUNT 167 10x3/uL (130-400); RBC 4.03 10x6/uL (4.20-6.10); WBC 6.2 10x3/uL (4.8-10.8)
[2020-05-31 05:50] LABS: ALBUMIN 2.6 g/dL (3.4-5.0); ANION GAP 8.4 mmol/L (8-16); BILIRUBIN - TOTAL 0.46 mg/dL (0.2-1.3); CALCIUM 8.4 mg/dL (8.5-10.1); CARBON DIOXIDE 28.2 mmol/L (21.0-32.0); CREATININE - SERUM 1.3 mg/dL (0.6-1.3); MAGNESIUM - SERUM 1.9 mg/dL (1.8-2.4); POTASSIUM - SERUM 3.6 mmol/L (3.5-5.1); PROTEIN - SERUM 6.6 g/dL (6.4-8.2)
[2020-05-31 09:00] VITALS: BP 128/51
--- NOTE | 2020-05-31 09:10 | NUR ---
ALERT AND ORIENTED X4. IV INTACT TO LEFT F/A S/L WITH NO S/S OF INFECTION/INFILTRATION.O2 7L HIFLOW N/C. PATIENT UP ADLIB WITH EXPIRATORY WHEEZE TO LLQ ANTERIOR. TELEMETRY INTACT. ENCOURAGED TO USE CALL LIGHT FOR ASSSIT. DENIES ANY PAIN OR DISCOMFORT.
[2020-05-31 11:00] VITALS: BP 138/63
[2020-05-31 15:00] VITALS: BP 141/51
--- NOTE | 2020-05-31 19:30 | NUR ---
PT IN BED, AAOX3, RESP EVEN AND UNLABORED. NO DISTRESS NOTED. CL IN REACH, SR UP X 2.
[2020-05-31 20:00] VITALS: BP 128/62
[2020-06-01] VITALS: BP 144/66
[2020-06-01 04:00] VITALS: BP 137/63
[2020-06-01 05:13] LABS: BASOPHILS 0.3 % (0-2); EOSINOPHILS 4.8 % (0-7); HEMATOCRIT 37.6 % (42.0-54.0); HEMOGLOBIN 11.2 g/dL (13.5-17.5); LYMPHOCYTES 17.9 % (15-50); MCH 28.1 pg (26.0-34.0); MCHC 29.8 g/dL (31.0-37.0); MCV 94.2 fL (80.0-100.0); MEAN PLATELET VOLUME 9.2 fL (7.4-10.4); MONOCYTES 8.9 % (2-11); NEUTROPHILS 68.1 % (40-80); PLATELET COUNT 180 10x3/uL (130-400); RBC 3.99 10x6/uL (4.20-6.10); RDW 19.4 % (11.5-14.5); WBC 6.4 10x3/uL (4.8-10.8)
[2020-06-01 06:00] LABS: ALBUMIN 2.8 g/dL (3.4-5.0); ANION GAP 8.3 mmol/L (8-16); BILIRUBIN - TOTAL 0.39 mg/dL (0.2-1.3); CALCIUM 8.6 mg/dL (8.5-10.1); CARBON DIOXIDE 30.5 mmol/L (21.0-32.0); CREATININE - SERUM 1.4 mg/dL (0.6-1.3); MAGNESIUM - SERUM 1.9 mg/dL (1.8-2.4); POTASSIUM - SERUM 3.8 mmol/L (3.5-5.1); PROTEIN - SERUM 6.8 g/dL (6.4-8.2)
--- NOTE | 2020-06-01 06:12 | NUR ---
I have reviewed this patient and I concur with the Shift Assessment completed by the Licensed Practical Nurse today this shift.
--- NOTE | 2020-06-01 07:39 | NUR ---
PT SITTING UP IN BED. CALL LIGHT WITHIN REACH. DENIES NEEDS OR PAIN AT THIS TIME. RR EVEN AND UNLABORED. BED IN LOWEST POSITION. WILL CONTINUE TO MONITOR.
[2020-06-01 08:31] VITALS: BP 143/55
--- NOTE | 2020-06-01 10:15 | NUR ---
I have reviewed this patient and I concur with the Shift Assessment completed by the Licensed Practical Nurse today this shift.
[2020-06-01 13:20] VITALS: BP 138/61
[2020-06-01 18:29] VITALS: BP 137/54
--- NOTE | 2020-06-01 20:25 | NUR ---
ALERT WITH NO COMPLAITNS VOICED. O2 @ 7L PER HIGHFLOW ON. SP02 AT 95%. NO DISTRESSS NOTED. SL TO LFA INTACT WITHOUT REDNESS OR EDEMA NOTED. CL IN REACH
[2020-06-02 00:30] VITALS: BP 131/68
[2020-06-02 05:00] VITALS: BP 121/58
[2020-06-02 05:23] LABS: BASOPHILS 0.3 % (0-2); EOSINOPHILS 4.7 % (0-7); HEMATOCRIT 37.7 % (42.0-54.0); HEMOGLOBIN 11.2 g/dL (13.5-17.5); LYMPHOCYTES 15.6 % (15-50); MCHC 29.7 g/dL (31.0-37.0); MCV 94.3 fL (80.0-100.0); MEAN PLATELET VOLUME 9.1 fL (7.4-10.4); MONOCYTES 9.2 % (2-11); NEUTROPHILS 70.2 % (40-80); PLATELET COUNT 188 10x3/uL (130-400); RDW 19.3 % (11.5-14.5); WBC 6.4 10x3/uL (4.8-10.8)
[2020-06-02 05:36] LABS: ANION GAP 6.1 mmol/L (8-16); CALCIUM 8.6 mg/dL (8.5-10.1); CARBON DIOXIDE 32.6 mmol/L (21.0-32.0); CREATININE - SERUM 1.4 mg/dL (0.6-1.3); MAGNESIUM - SERUM 1.9 mg/dL (1.8-2.4); POTASSIUM - SERUM 3.7 mmol/L (3.5-5.1)
--- NOTE | 2020-06-02 06:07 | NUR ---
I have reviewed this patient and I concur with the Shift Assessment completed by the Licensed Practical Nurse today this shift.
--- NOTE | 2020-06-02 07:55 | NUR ---
REPORT RECIEVED. PT SITTING SEMI FOLWERS IN BED. RR EVEN AND UNLABORED ON 7L HF NC. HE HAS A L FA PIV THAT IS SL. BED LOCKED AND IN LOWEST POSITION, CALL LIGHT WITHIN REACH. WILL CTM
[2020-06-02 08:30] VITALS: BP 146/62
[2020-06-02 12:00] VITALS: BP 152/46
[2020-06-02 16:50] VITALS: BP 123/61
--- NOTE | 2020-06-02 17:58 | NUR ---
I have reviewed this patient and I concur with the Shift Assessment completed by the Licensed Practical Nurse today this shift.
[2020-06-02 20:00] VITALS: BP 123/55
--- NOTE | 2020-06-02 20:51 | NUR ---
PT LYING IN BED AWAKE ALERT AND ORIENTED x4. NO SIGNS OF DISTRESS NOTED.RESPIRATIONS EVEN AND UNLABORED. PT HAS NO COMPLAINTS AT THIS TIME. CALL LIGHT AND OTHER PERSONAL ITEMS WITH IN REACH. PT ENCOURAGED TO CALL FOR HELP WHEN NEEDED SIDERAILS x2. BED IS LOCKED AND IN ITS LOWEST POSITION. WILL CONTINUE TO MONITOR
[2020-06-03] VITALS (7 sets, daily range): BP systolic 120–142; BP diastolic 45–66
--- NOTE | 2020-06-03 03:35 | NUR ---
PT LYING IN BED RESTING WITH EYES CLOSED. PT EASILY AWAKEN WITH VOICE STIMULATION. NO SIGNS OF DISTRESS NOTED. PT HAS NO COMPLAINTS AT THIS TIME. WILL CONTINUE TO MONITOR
[2020-06-03 05:32] LABS: BASOPHILS 0.1 % (0-2); EOSINOPHILS 3.7 % (0-7); HEMATOCRIT 39.2 % (42.0-54.0); HEMOGLOBIN 11.8 g/dL (13.5-17.5); IMMATURE GRANULOCYTES 0.1 % (0-5); LYMPHOCYTES 13.8 % (15-50); MCH 28.1 pg (26.0-34.0); MCHC 30.1 g/dL (31.0-37.0); MCV 93.3 fL (80.0-100.0); MEAN PLATELET VOLUME 9.4 fL (7.4-10.4); MONOCYTES 7.9 % (2-11); NEUTROPHILS 74.4 % (40-80); PLATELET COUNT 215 10x3/uL (130-400); RDW 19.2 % (11.5-14.5); WBC 6.7 10x3/uL (4.8-10.8)
[2020-06-03 06:04] LABS: ANION GAP 7.5 mmol/L (8-16); CALCIUM 8.8 mg/dL (8.5-10.1); CARBON DIOXIDE 30.5 mmol/L (21.0-32.0); CREATININE - SERUM 1.4 mg/dL (0.6-1.3); MAGNESIUM - SERUM 1.9 mg/dL (1.8-2.4)
--- NOTE | 2020-06-03 06:21 | NUR ---
I have reviewed this patient and I concur with the Shift Assessment completed by the Licensed Practical Nurse today this shift.
--- NOTE | 2020-06-03 07:43 | NUR ---
ALERT AND ORIENTED. LUNGS CLEAR BILATERALLY. HEART SOUNDS S1 AND S2 HEARD IN ALL PRASAD. BOWEL SOUNDS ACTIVE X 4. IV TO LFA PATENT WITHOUT REDNESS. O2 IN PLACE AT 7L HFNC. DENIES NEEDS. BED LOW. CALL ZENG AND PERSONAL ITEMS IN REACH. WILL CONTINUE TO MONITOR.
--- NOTE | 2020-06-03 09:53 | NUR ---
SPOKE WITH CASIMIRO NARVAEZ FOR DIET ORDER. STATES WILL PLACE.
--- NOTE | 2020-06-03 10:08 | NUR ---
RESTING IN BED. DENIES NEEDS. WILL CONTINUE TO MONITOR.
--- NOTE | 2020-06-03 11:43 | NUR ---
Nutrition Follow-up: Good appetite/PO intake. Reports drinking 1 Boost/day. Diet: Cardiac PO intake: 100% x last 4 meals Wt: 150# (06/03) Last BM: 06/02 Labs reviewed Meds noted: vitamin D, Prednisone, Lasix, Micro K, Protonix, electrolyte protocol -Monitor wt; noted daily wts ordered. -RD following.
--- NOTE | 2020-06-03 14:48 | MORECARE ---
CASE MANAGEMENT DISCHARGE SUMMARY PATIENT: ORI MONSALVE UNIT: [id number] ADM DATE: 05/27/20 AGE: 74 : 43 SEX: M ROOM/BED: D.2109 AUTHOR: MICHELINE ALBRECHT PHYSICIAN: REFERRING PHYSICIAN: IRIS SHAHID MD DATE OF SERVICE: 06/03/20 Discharge Plan Patient Name: ORI MONSALVE Facility: [facility]:[place] : 1945 Planned Disposition: Home Anticipated Discharge Date: Discharge Date: Expected LOS: Initial Reviewer: [email or web address] Initial Review Date: 05/27/2020 Generated: 06/03/20 3:48 pm External Providers [facility] Next Contact Date: Service Request Date: Service Type: Resolution: Reviewer: Comments: Patient Name: ORI MONSALVE Page [id number] at 1448 All edits/amendments must be made on the electronic document DICTATION DATE: 06/03/20 1448 TUNNEL KILN REPAIRER: NERI 06/03/20 1448 RPT#: [id number] DC DATE: STATUS: ADM IN [facility] [address] [place] [address] END OF REPORT
--- NOTE | 2020-06-03 19:59 | NUR ---
PT LYING IN BED AWAKE ALERT AND ORIENTED x4. NO SIGNS OR SYMPTOMS OF DISTRESS NOTED. RESPIRATIONS EVEN AND UNLABORED. PT HAS NO COMPLAINTS AT THIS TIME. DENIES PAIN. CALL LIGHT AND OTHER PERSONAL ITEMS WITH IN REACH. WILL CONTINUE TO MONITOR
[2020-06-04 04:34] VITALS: BP 123/50
[2020-06-04 06:51] LABS: BASOPHILS 0.1 % (0-2); EOSINOPHILS 0.7 % (0-7); HEMOGLOBIN 12.5 g/dL (13.5-17.5); IMMATURE GRANULOCYTES 0.3 % (0-5); LYMPHOCYTES 6.4 % (15-50); MCH 28.5 pg (26.0-34.0); MCHC 30.5 g/dL (31.0-37.0); MCV 93.4 fL (80.0-100.0); MEAN PLATELET VOLUME 9.6 fL (7.4-10.4); MONOCYTES 2.7 % (2-11); NEUTROPHILS 89.8 % (40-80); PLATELET COUNT 232 10x3/uL (130-400); RBC 4.39 10x6/uL (4.20-6.10); RDW 19.2 % (11.5-14.5); WBC 7.3 10x3/uL (4.8-10.8)
[2020-06-04 07:03] LABS: ANION GAP 9.4 mmol/L (8-16); CALCIUM 9.3 mg/dL (8.5-10.1); CARBON DIOXIDE 31.8 mmol/L (21.0-32.0); CREATININE - SERUM 1.3 mg/dL (0.6-1.3); MAGNESIUM - SERUM 2.2 mg/dL (1.8-2.4); POTASSIUM - SERUM 4.2 mmol/L (3.5-5.1)
[2020-06-04 09:00] VITALS: BP 136/56
[2020-06-04 11:00] VITALS: BP 127/51
[2020-06-04 15:00] VITALS: BP 153/77
--- NOTE | 2020-06-04 18:13 | MORECARE ---
CASE MANAGEMENT DISCHARGE SUMMARY PATIENT: ORI HDEZ UNIT: [id number] ADM DATE: 05/27/20 AGE: 74 : 44 SEX: M ROOM/BED: D.2104 AUTHOR: MICHELINE ALBRECHT PHYSICIAN: REFERRING PHYSICIAN: IRIS SHAHID MD DATE OF SERVICE: 06/04/20 Discharge Plan Patient Name: ORI HDEZ [facility] [facility] 1945 Planned Disposition: Home Anticipated Discharge Date: Discharge Date: Expected LOS: Initial Reviewer: [email or web address] Initial Review Date: 05/27/2020 Generated: 06/04/20 7:13 pm Comments DCP- Discharge Planning Updated by [email or web address]: Maranda Garcia on 06/04/20 5:[address] CM met with patient today regarding DC plans/needs. Patient is in agreement to same. Patient lives in his home, with his Yessy Hdez ([phone]). PCP: Liana Moncada APRN with Dr. Grace. DME: walker, home 02, portable 02 2-3L ([facility]), walker, nebulizer.. Patient states he is partially dependent with his ADL's and that his assist him when needed. Patient states his will drive him home upon DC. At present he declines the need for HHS, Rehab or a SNF stay. Patient denies being hospitalized within past 30 days. CM will follow and assist with DC needs/plans. Patient would benefit HHS upon DC if he will agree. Last DP export: 06/03/20 1:48 pm Patient Name: ORI HDEZ Page [phone] at 1813 All edits/amendments must be made on the electronic document DICTATION DATE: 06/04/201812 ASSISTANT MERCHANDISER: NERI 06/04/201812 RPT#: [id number] DC DATE: STATUS: ADM IN [facility] [address] [place] [address] END OF REPORT
--- NOTE | 2020-06-04 18:57 | NUR ---
I have reviewed this patient and I concur with the Shift Assessment completed by the Licensed Practical Nurse today this shift.
--- NOTE | 2020-06-04 19:49 | NUR ---
PT LYING IN BED WITH HEAD ELEVATED TO 40 DEGREES. PT IS AWAKE ALERT AND ORIENTED x4. NO SIGNS OR SYMPTOMS OF DISTRESS NOTED. RESPIRATIONS EVEN AND UNLABORED. PT HAS NO COMPLAINTS AT THIS TIME. PT DENIES PAIN AT THIS TIME. CALL LIGHT AND OTHER PERSONAL ITEMS WITH IN REACH. WILL CONTINUE TO MONITOR
[2020-06-04 20:00] VITALS: BP 129/64
--- NOTE | 2020-06-04 20:11 | NUR ---
PT SITTING UP IN BED, RR EVEN AND UNLABORED ON 7L HF NC. DENIES NEEDS OR PAIN AT THIS TIME. CALL LIGHT WITHIN REACH. BED IN LOWEST POSITION. WILL CONTINUE TO MONITOR.
[2020-06-05] VITALS: BP 120/49
[2020-06-05 04:00] VITALS: BP 122/62
[2020-06-05 06:30] LABS: ANION GAP 6.6 mmol/L (8-16); CALCIUM 9.1 mg/dL (8.5-10.1); CARBON DIOXIDE 31.8 mmol/L (21.0-32.0); CREATININE - SERUM 1.3 mg/dL (0.6-1.3); MAGNESIUM - SERUM 2.2 mg/dL (1.8-2.4); POTASSIUM - SERUM 4.4 mmol/L (3.5-5.1)
[2020-06-05 06:34] LABS: BASOPHILS 0 % (0-2); EOSINOPHILS 0.3 % (0-7); HEMATOCRIT 38.8 % (42.0-54.0); HEMOGLOBIN 11.6 g/dL (13.5-17.5); IMMATURE GRANULOCYTES 0.3 % (0-5); LYMPHOCYTES 6.2 % (15-50); MCH 27.8 pg (26.0-34.0); MCHC 29.9 g/dL (31.0-37.0); MCV 92.8 fL (80.0-100.0); MEAN PLATELET VOLUME 9.9 fL (7.4-10.4); MONOCYTES 2.7 % (2-11); NEUTROPHILS 90.5 % (40-80); PLATELET COUNT 252 10x3/uL (130-400); RBC 4.18 10x6/uL (4.20-6.10); RDW 19.2 % (11.5-14.5); WBC 7.8 10x3/uL (4.8-10.8)
--- NOTE | 2020-06-05 07:30 | NUR ---
PT SITTING UP IN BED, RR EVEN AND UNLABORED ON 5L HF NC. DENIES NEEDS OR PAIN AT THIS TIME. CALL LIGHT WTIHIN REACH. WILL CONTINUE TO MONITOR.
[2020-06-05 09:00] VITALS: BP 139/61
--- NOTE | 2020-06-05 09:20 | MORECARE ---
CASE MANAGEMENT DISCHARGE SUMMARY PATIENT: ORI HDEZ UNIT: [id number] ADM DATE: 05/27/20 AGE: 74 : 44 SEX: M ROOM/BED: D.2107 AUTHOR: MICHELINE ALBRECHT PHYSICIAN: REFERRING PHYSICIAN: IRIS SHAHID MD DATE OF SERVICE: 06/05/20 Discharge Plan Patient Name: ORI HDEZ [facility] : 1945 Planned Disposition: Home Anticipated Discharge Date: Discharge Date: Expected LOS: Initial Reviewer: [email or web address] Initial Review Date: 05/27/2020 Generated: 06/05/20 10:20 am Comments DCP- Discharge Planning Updated by [email or web address]: Maranda Garcia on 06/04/20 5:[address] CM met with patient today regarding DC plans/needs. Patient is in agreement to same. Patient lives in his home, with his Yessy Hdez ([phone]). PCP: Liana Moncada APRN with Dr. Grace. DME: walker, home 02, portable 02 2-3L ([facility]), walker, nebulizer.. Patient states he is partially dependent with his ADL's and that his assist him when needed. Patient states his will drive him home upon DC. At present he declines the need for HHS, Rehab or a SNF stay. Patient denies being hospitalized within past 30 days. CM will follow and assist with DC needs/plans. Patient would benefit HHS upon DC if he will agree. Last DP export: 06/04/20 5:13 pm Patient Name: ORI HDEZ Page [phone] at 0920 All edits/amendments must be made on the electronic document DICTATION DATE: 06/05/20919 DRUM HANDLER: NERI 06/05/20919 RPT#: [id number] DC DATE: STATUS: ADM IN [facility] [address] [place] [address] END OF REPORT
[2020-06-05 11:00] VITALS: BP 127/48
[2020-06-05 15:00] VITALS: BP 130/59
--- NOTE | 2020-06-05 17:50 | NUR ---
I have reviewed this patient and I concur with the Shift Assessment completed by the Licensed Practical Nurse today this shift.
--- NOTE | 2020-06-05 19:48 | NUR ---
PATIENT IS RESTING COMFORTBLY IN BED. HE IS ALERT AND ORIENTATED. HE IS ON OXYGEN VIA NASAL CANULA. HE SAYS HE IS FEELING BETTER. WE WILL CONTINUE TO MONITOR HIS HEART RATE AND RHYTHM.
[2020-06-05 21:11] VITALS: BP 133/60
[2020-06-06 00:32] VITALS: BP 115/64
--- NOTE | 2020-06-06 04:19 | NUR ---
PATIENT IS SLEEPING IN BED. HE VOIDED ONCE, IN A LARGE AMOUNT. HE IS STILL IN CONTROLLED AFIB. HE IS ON 4 LITERS NASAL CANNULA. HE SEEMS ENCOURAGED THAT HE HAS GONE DOWN TO 4 LITERS OXYGEN. WE WILL CONTINUE TO MONITOR HIS RATE AND RHYTHM AND HIS RESPIRATORY STATUS.
[2020-06-06 04:45] LABS: BASOPHILS 0 % (0-2); EOSINOPHILS 0.1 % (0-7); HEMATOCRIT 37.4 % (42.0-54.0); HEMOGLOBIN 11.2 g/dL (13.5-17.5); IMMATURE GRANULOCYTES 0.3 % (0-5); LYMPHOCYTES 5.5 % (15-50); MCH 27.7 pg (26.0-34.0); MCHC 29.9 g/dL (31.0-37.0); MCV 92.6 fL (80.0-100.0); MEAN PLATELET VOLUME 9.4 fL (7.4-10.4); MONOCYTES 2.5 % (2-11); NEUTROPHILS 91.6 % (40-80); PLATELET COUNT 271 10x3/uL (130-400); RBC 4.04 10x6/uL (4.20-6.10); RDW 19.2 % (11.5-14.5); WBC 7.6 10x3/uL (4.8-10.8)
[2020-06-06 04:51] VITALS: BP 124/66
[2020-06-06 06:25] LABS: ANION GAP 10.8 mmol/L (8-16); CALCIUM 8.7 mg/dL (8.5-10.1); CARBON DIOXIDE 29.6 mmol/L (21.0-32.0); CREATININE - SERUM 1.5 mg/dL (0.6-1.3); MAGNESIUM - SERUM 2.2 mg/dL (1.8-2.4); POTASSIUM - SERUM 4.4 mmol/L (3.5-5.1)
--- NOTE | 2020-06-06 07:35 | NUR ---
ROUNDING DONE WITH NO NEEDS VOICD BY PATIENT. ON 4L PER HIGH FLOW WITH HUMMIDIFIED WATER WHICH I FILLED UP. PATIENT STATES HE HAD SLIGHT NOSE BLEED THIS AM BUT IT STOPPED. LEFT FA SALINE LOCK SEEN, FLUSHES WELL. ORANGE SWAB CAP PLACED. GLASSES ON. ON HEART MONITOR SHOWING CAF, PACEMAKER SEEN TO RIGHT CHEST WALL.
[2020-06-06 09:00] VITALS: BP 137/62
[2020-06-06 11:00] VITALS: BP 117/48
--- NOTE | 2020-06-06 13:39 | NUR ---
Nutrition Follow-up: Pt eating well and states that he is feeling much better. Diet: Cardiac PO intake: 75-100% Wt: 147# (06/06) Last BM: 06/06 Labs noted: Glu 119 Meds noted: Lasix, Micro K, Solumedrol, vitamin D, Protonix, electrolyte protocol -Monitor wt; noted daily wts ordered. -RD following.
[2020-06-06 15:00] VITALS: BP 121/68
[2020-06-06 20:00] VITALS: BP 121/51
--- NOTE | 2020-06-07 08:12 | NUR ---
AM MEDS GIVEN AT THIS TIME. PT IN BED, EATING BREAKFAST. PT A/O X4, RESP EVEN AND NONLABORED ON 4L HF. LT FA IV SL. PT DENIES ANY NEEDS AT THIS TIME. CALL LIGHT IN REACH, NAD NOTED, WILL CONTINUE TO MONITOR.
[2020-06-07 09:00] VITALS: BP 117/65
[2020-06-07 10:34] LABS: HEMATOCRIT 36.9 % (42.0-54.0); HEMOGLOBIN 11.3 g/dL (13.5-17.5); LYMPHOCYTES 6.4 % (15-50); MCH 28.4 pg (26.0-34.0); MCHC 30.6 g/dL (31.0-37.0); MCV 92.7 fL (80.0-100.0); MEAN PLATELET VOLUME 9.2 fL (7.4-10.4); NEUTROPHILS 87.9 % (40-80); PLATELET COUNT 278 10x3/uL (130-400); RBC 3.98 10x6/uL (4.20-6.10); RDW 19.3 % (11.5-14.5); WBC 7.6 10x3/uL (4.8-10.8)
[2020-06-07 10:48] LABS: ANION GAP 7.1 mmol/L (8-16); CALCIUM 8.7 mg/dL (8.5-10.1); CARBON DIOXIDE 31.4 mmol/L (21.0-32.0); CREATININE - SERUM 1.4 mg/dL (0.6-1.3); POTASSIUM - SERUM 4.5 mmol/L (3.5-5.1)
[2020-06-07 20:28] VITALS: BP 185/108
--- NOTE | 2020-06-08 03:24 | NUR ---
I have reviewed this patient and I concur with the Shift Assessment completed by the Licensed Practical Nurse today this shift.
[2020-06-08 05:00] VITALS: BP 129/66
[2020-06-08 05:34] LABS: BASOPHILS 0 % (0-2); EOSINOPHILS 2.1 % (0-7); HEMATOCRIT 36.2 % (42.0-54.0); IMMATURE GRANULOCYTES 0.2 % (0-5); LYMPHOCYTES 12.2 % (15-50); MCH 28.6 pg (26.0-34.0); MCHC 30.4 g/dL (31.0-37.0); MEAN PLATELET VOLUME 9.5 fL (7.4-10.4); MONOCYTES 8.2 % (2-11); NEUTROPHILS 77.3 % (40-80); PLATELET COUNT 280 10x3/uL (130-400); RBC 3.85 10x6/uL (4.20-6.10); RDW 19.5 % (11.5-14.5); WBC 9.2 10x3/uL (4.8-10.8)
[2020-06-08 05:44] LABS: ANION GAP 9.6 mmol/L (8-16); CALCIUM 8.4 mg/dL (8.5-10.1); CARBON DIOXIDE 29.5 mmol/L (21.0-32.0); CREATININE - SERUM 1.6 mg/dL (0.6-1.3); POTASSIUM - SERUM 4.1 mmol/L (3.5-5.1)
--- NOTE | 2020-06-08 08:45 | NUR ---
AM MEDS GIVEN AT THIS TIME. PT RESTING COMFORTABLY IN BED, WATCHING TV. PT A/O X4, RESP EVEN AND NONLABORED ON 2L. LT FA IV SL. PT DENIES ANY NEEDS AT THIS TIME. CALL [facility] IN REACH, NAD NOTED, WILL CONTINUE TO MONITOR.
[2020-06-08 10:06] VITALS: BP 140/56
--- NOTE | 2020-06-08 11:46 | NUR ---
PT RESTING COMFORTABLY, WATCHING TV, HIMANSHU ANY NEEDS AT THIS TIME. CALL LIGHT IN REACH, NAD NOTED, WILL CONTINUE PLAN OF CARE.
[2020-06-08 18:06] VITALS: BP 130/49
--- NOTE | 2020-06-08 22:41 | NUR ---
PT A/O X4. RR EVEN AND UNLABORED. NO S/S OF DISTRESS AT THIS TIME. PT DENIES ANY PAIN OR FURTHER NEEDS. PT REQUEST THAT HE NOT RECIEVE BX TREATMENT OR MEDICATION THIS AM. HE WOULD LIKE TO NOT BE DISTURBED. PT RUNNING SR-TELE PER INDUSTRIAL PARAMEDIC SOLOMEN.
[2020-06-09 04:29] VITALS: BP 112/63
--- NOTE | 2020-06-09 06:28 | NUR ---
I have reviewed this patient and I concur with the Shift Assessment completed by the Licensed Practical Nurse today this shift.
--- NOTE | 2020-06-09 08:22 | NUR ---
AM MEDS GIVEN AT THIS TIME. PT RESTING COMFORTABLY IN BED, DENIES ANY NEEDS AT THIS TIME. CALL LIGHT IN REACH, NAD NOTED, WILL CONTINEU PLAN OF CARE.
[2020-06-09 09:00] VITALS: BP 129/55
[2020-06-09] MEDS ORDERED: XARELTO15 MG PO (09:11)
[2020-06-09] MEDS ORDERED: PREDNISONE10 MG PO (09:15)
[2020-06-09] MEDS ORDERED: SYMBICORT 16010.2 GM INH (09:23)
[2020-06-09] MEDS ORDERED: AMIODARONE HCL200 MG PO (09:24)
[2020-06-09 10:04] LABS: ANION GAP 9.5 mmol/L (8-16); CALCIUM 8.5 mg/dL (8.5-10.1); CARBON DIOXIDE 30.3 mmol/L (21.0-32.0); CREATININE - SERUM 1.4 mg/dL (0.6-1.3); POTASSIUM - SERUM 3.8 mmol/L (3.5-5.1)
--- NOTE | 2020-06-09 10:17 | NUR ---
LT FA IV REMOVED WITH CATHETER TIP INTACT. HEART MONITOR REMOVED AND TAKEN TO DELIVERY DRIVER, WAITING ON DISCHARGE PAPERS TO DISCHARGE PT.
[2020-06-09 10:37] LABS: HEMATOCRIT 36.9 % (42.0-54.0); HEMOGLOBIN 11.4 g/dL (13.5-17.5); LYMPHOCYTES 11.5 % (15-50); MCH 28.7 pg (26.0-34.0); MCHC 30.9 g/dL (31.0-37.0); MCV 92.9 fL (80.0-100.0); MEAN PLATELET VOLUME 9.3 fL (7.4-10.4); NEUTROPHILS 77.1 % (40-80); PLATELET COUNT 264 10x3/uL (130-400); RBC 3.97 10x6/uL (4.20-6.10); RDW 19.7 % (11.5-14.5); WBC 8.2 10x3/uL (4.8-10.8)
--- NOTE | 2020-06-09 10:51 | NUR ---
PROVIDED VERBAL AND WRITTEN DISCHARGE TEACHING TO PT, WHO VERBALIZED UNDERSTANDING REGARDING TEACHING. PT WAITING ON RIDE, WILL NOTIFY NURSE WHEN READY FOR WHEELCHAIR.
--- NOTE | 2020-06-09 11:42 | MORECARE ---
CASE MANAGEMENT DISCHARGE SUMMARY PATIENT: ORI HDEZ UNIT: [id number] ADM DATE: 05/27/20 AGE: 74 : 44 SEX: M ROOM/BED: D.1380 AUTHOR: MICHELINE ALBRECHT PHYSICIAN: REFERRING PHYSICIAN: IRIS SHAHID MD DATE OF SERVICE: 06/09/20 Discharge Plan Patient Name: ORI HDEZ Facility[facility]:[place] : 1945 Planned Disposition: Home Anticipated Discharge Date: Discharge Date: Expected LOS: Initial Reviewer: [email or web address] Initial Review Date: 05/27/2020 Generated: 06/09/20 12:41 pm Comments DCP- Discharge Planning Updated by [email or web address]: Maranda Garcia on 06/09/20 10:[address] Cm with patient, he states that he has a portable O2, his is coming to pick him up. O2 is with [facility]. CM contacted [facility] for resumption of care with PT and also requested a nursing evaluation. Faxed required information to Mini and she states HH will resume care. Patient had questions about new medications. CM made patient aware that the new medications will be called to his pharmacy and his nurse will go over his medications upon DC. DCP- Discharge Planning Updated by [email or web address]: Maranda Garcia on 06/04/20 5:[address] CM met with patient today regarding DC plans/needs. Patient is in agreement to [facility]. Patient lives in his home, with his Yessy Hdez ([phone]). PCP: Liana Moncada APRN with Dr. Grace. DME: walker, home 02, portable 02 2-3L ([facility]), walker, nebulizer.. Patient states he is partially dependent with his ADL's and that his assist him when needed. Patient states his will drive him home upon DC. At present he declines the need for HHS, Rehab or a SNF stay. Patient denies being hospitalized within past 30 days. CM will follow and assist with DC needs/plans. Patient would benefit [facility] upon DC if he will agree. Coverage Notice Reviewer: [id number] - Maranda Garcia Notice Issued Date-Time: 06/09/2020 10:12 Notice Type: Medicare Outpatient Observation Notice Notice Delivered To: Patient Relationship to Patient: Self Lead Data Architect Name: Ori Hdez Delivery Method: HAND - Hand Delivered Dalia Days: Prior Verbal Notification: Recipient Understood Notice: Yes Recipient Signature: Yes Med Rec Note Co-signed by Attending: Coverage Notice Comment: DC IMM Last DP export: 06/05/20 8:20 am Patient Name: ORI HDEZ Page [phone] at 1142 All edits/amendments must be made on the electronic document DICTATION DATE: 06/09/20 1141 GRASS FARM LABORER: NERI 06/09/20 1141 RPT#: [id number] DC DATE: STATUS: ADM IN [facility] [address] [place] [address] END OF REPORT
--- NOTE | 2020-06-09 11:59 | NUR ---
PT LEFT UNIT VIA WHEELCHAIR, WITH ALL BELONGINGS, ACCOMAPANIED BY FAMILY, NAD NOTED.
--- NOTE | 2020-06-09 16:48 | MORECARE ---
CASE MANAGEMENT DISCHARGE SUMMARY PATIENT: ORI HDEZ UNIT: [id number] ADM DATE: 05/27/20 AGE: 74 : 44 SEX: M ROOM/BED: D.9165 AUTHOR: MICHELINE ALBRECHT PHYSICIAN: REFERRING PHYSICIAN: IRIS SHAHID MD DATE OF SERVICE: 06/09/20 Discharge Plan Patient Name: ORI HDEZ Facility: [facility]:[place] : 1945 Planned Disposition: Home Anticipated Discharge Date: Discharge Date: 06/09/2020 Expected LOS: Initial Reviewer: [id number] Initial Review Date: 05/27/2020 Generated: 06/09/20 5:48 pm Comments DCP- Discharge Planning Updated by [id number]: Maranda Garcia on 06/09/20 10:[address] Cm with patient, he states that he has a portable O2, his is coming to pick him up. O2 is with [facility]. CM contacted [facility] for resumption of care with PT and also requested a nursing evaluation. Faxed required information to Mini and she states HH will resume care. Patient had questions about new medications. CM made patient aware that the new medications will be called to his pharmacy and his nurse will go over his medications upon DC. DCP- Discharge Planning Updated by [id number]: Maranda Garcia on 06/04/20 5:[address] CM met with patient today regarding DC plans/needs. Patient is in agreement to [facility]. Patient lives in his home, with his Yessy Hdez ([phone]). PCP: Liana Moncada APRN with Dr. Grace. DME: walker, home 02, portable 02 2-3L ([facility]), walker, nebulizer.. Patient states he is partially dependent with his ADL's and that his assist him when needed. Patient states his will drive him home upon DC. At present he declines the need for HHS, Rehab or a SNF stay. Patient denies being hospitalized within past 30 days. CM will follow and assist with DC needs/plans. [facility] if he will agree. Coverage Notice Reviewer: [id number] - Maranda Radha Notice Issued Date-Time: 06/09/2020 10:12 Notice Type: Medicare Outpatient Observation Notice Notice Delivered To: Patient Relationship to Patient: Self Claim Examiner Name: Ori Hdez Delivery Method: HAND - Hand Delivered Dalia Days: Prior Verbal Notification: Recipient Understood Notice: Yes Recipient Signature: Yes Med Rec Note Co-signed by Attending: Coverage Notice Comment: DC IMM Last DP export: 06/09/20 10:42 a Patient Name: ORI HDEZ Page 53963 at 1648 All edits/amendments must be made on the electronic document DICTATION DATE: 06/09/201647 TOMATO PASTE MAKER: NERI 06/09/208 RPT#: [id number] DC DATE:06/09/20 STATUS: DIS IN [facility] [address] [place] [address] END OF REPORT
== END 2020-06-09 12:00 | disposition home health service (06) | DRG 291 ==
LOC: D.M2 11:33
PROVIDERS: Family Medicine; ADMIT Family Medicine; ATTEND Family Medicine
DX: I13.0 Hypertensive heart and chronic kidney disease with heart failure and stage 1 through stage 4 chronic kidney disease, or unspecified chronic kidney disease (principal); J96.21 Acute and chronic respiratory failure with hypoxia; I50.43 Acute on chronic combined systolic (congestive) and diastolic (congestive) heart failure; J44.1 Chronic obstructive pulmonary disease with (acute) exacerbation; I25.10 Atherosclerotic heart disease of native coronary artery without angina pectoris; I48.91 Unspecified atrial fibrillation; Z79.01 Long term (current) use of anticoagulants; I73.9 Peripheral vascular disease, unspecified; G40.909 Epilepsy, unspecified, not intractable, without status epilepticus; I27.20 Pulmonary hypertension, unspecified; I08.1 Rheumatic disorders of both mitral and tricuspid valves; N40.0 Benign prostatic hyperplasia without lower urinary tract symptoms; G47.00 Insomnia, unspecified; D63.1 Anemia in chronic kidney disease; N18.9 Chronic kidney disease, unspecified; Z86.73 Personal history of transient ischemic attack (TIA), and cerebral infarction without residual deficits; Z87.891 Personal history of nicotine dependence; Z95.0 Presence of cardiac pacemaker

== ENCOUNTER 2020-07-15 13:15 | Inpatient (IN) | payer MEDICARE ==
[~2020-07-15] VITALS: Ht 172.7 cm; Wt 64.4 kg
[~2020-07-15 13:15] MED LIST changes: +AMIODARONE HCL200 MG PO; +PREDNISONE10 MG PO; +SYMBICORT 16010.2 GM INH; +XARELTO15 MG PO
[2020-07-15 14:52] LABS: BASOPHILS 0.2 % (0-2); EOSINOPHILS 2.1 % (0-7); HEMATOCRIT 37.2 % (42.0-54.0); HEMOGLOBIN 11.3 g/dL (13.5-17.5); IMMATURE GRANULOCYTES 0.2 % (0-5); LYMPHOCYTES 12.4 % (15-50); MCH 27.6 pg (26.0-34.0); MCHC 30.4 g/dL (31.0-37.0); MEAN PLATELET VOLUME 9.2 fL (7.4-10.4); NEUTROPHILS 75.1 % (40-80); PLATELET COUNT 249 10x3/uL (130-400); RBC 4.09 10x6/uL (4.20-6.10); WBC 6.6 10x3/uL (4.8-10.8)
[2020-07-15 15:03] LABS: APTT 40.5 SECONDS (22.8-39.4); INR 2.01 (0.85-1.17); PROTIME 22.5 SECONDS (11.6-15.0)
[2020-07-15 15:04] LABS: CALC OSMOLALITY 277 mosm/kg (275-300); CALCIUM 8.8 mg/dL (8.5-10.1); CARBON DIOXIDE 30.5 mmol/L (21.0-32.0); CHLORIDE - SERUM 103 mmol/L (98-107); CREATININE - SERUM 1.3 mg/dL (0.6-1.3); GLUCOSE 99 mg/dL (74-106); POTASSIUM - SERUM 3.2 mmol/L (3.5-5.1); SODIUM 140 mmol/L (136-145); UREA NITROGEN 10 mg/dL (7-18); eGFR NON AFRICAN AMERICAN 57 mL/min (90-120)
[2020-07-15 15:05] LABS: BILIRUBIN NEGATIVE (NEGATIVE); KETONE NEGATIVE (NEGATIVE); NITRITE NEGATIVE (NEGATIVE); UROBILINOGEN NORMAL (NORMAL)
[2020-07-15 15:18] VITALS: BP 137/77
[2020-07-15 15:30] LABS: ALBUMIN 2.9 g/dL (3.4-5.0); ALKALINE PHOSPHATASE 150 U/L (30-120); ALT (SGPT) 14 U/L (10-68); BILIRUBIN - TOTAL 0.37 mg/dL (0.2-1.3); CKMB 4.7 U/L (0.0-3.6); CREATINE KINASE 60 UL (21-232); LIPASE 52 U/L (73-393); MAGNESIUM - SERUM 1.8 mg/dL (1.8-2.4); PRO BNP 8490 pg/mL (0-450); PROTEIN - SERUM 7.1 g/dL (6.4-8.2)
[2020-07-15 15:35] LABS: TROPONIN-I 1.519 ng/mL (0.000-0.060)
[2020-07-15 16:17] VITALS: BP 123/67
[2020-07-15 17:28] VITALS: BP 126/72
[2020-07-15 18:00] LABS: CKMB 3.8 U/L (0.0-3.6); CREATINE KINASE 60 UL (21-232)
[2020-07-15 18:02] LABS: TROPONIN-I 1.949 ng/mL (0.000-0.060)
[2020-07-15 20:34] VITALS: BP 129/78
[2020-07-15 22:58] VITALS: BP 137/75; BMI 21.6
[2020-07-15 23:41] LABS: CKMB 2.7 U/L (0.0-3.6); CREATINE KINASE 49 UL (21-232)
[2020-07-15 23:50] LABS: TROPONIN-I 1.746 ng/mL (0.000-0.060)
[2020-07-16] VITALS: BP 137/75
[2020-07-16 04:00] VITALS: BP 151/61
[2020-07-16 07:12] LABS: BASOPHILS 0.2 % (0-2); EOSINOPHILS 3.2 % (0-7); HEMATOCRIT 35.5 % (42.0-54.0); HEMOGLOBIN 10.6 g/dL (13.5-17.5); IMMATURE GRANULOCYTES 0.2 % (0-5); LYMPHOCYTES 17.1 % (15-50); MCH 26.9 pg (26.0-34.0); MCHC 29.9 g/dL (31.0-37.0); MCV 90.1 fL (80.0-100.0); MEAN PLATELET VOLUME 9.1 fL (7.4-10.4); MONOCYTES 13.4 % (2-11); NEUTROPHILS 65.9 % (40-80); PLATELET COUNT 242 10x3/uL (130-400); RBC 3.94 10x6/uL (4.20-6.10); RDW 17.9 % (11.5-14.5); WBC 5.4 10x3/uL (4.8-10.8)
[2020-07-16 08:49] LABS: ALBUMIN 2.6 g/dL (3.4-5.0); ALKALINE PHOSPHATASE 139 U/L (30-120); ALT (SGPT) 11 U/L (10-68); BILIRUBIN - TOTAL 0.28 mg/dL (0.2-1.3); CALC OSMOLALITY 274 mosm/kg (275-300); CALCIUM 8.4 mg/dL (8.5-10.1); CARBON DIOXIDE 32.9 mmol/L (21.0-32.0); CHLORIDE - SERUM 103 mmol/L (98-107); CREATINE KINASE 36 UL (21-232); CREATININE - SERUM 1.2 mg/dL (0.6-1.3); GLUCOSE 84 mg/dL (74-106); MAGNESIUM - SERUM 1.8 mg/dL (1.8-2.4); PHENYTOIN (DILANTIN) 19.7 ug/mL (10.0-20.0); PHOSPHOROUS 2.7 mg/dL (2.5-4.9); POTASSIUM - SERUM 3.1 mmol/L (3.5-5.1); PROTEIN - SERUM 6.6 g/dL (6.4-8.2); SODIUM 139 mmol/L (136-145); UREA NITROGEN 8 mg/dL (7-18); eGFR NON AFRICAN AMERICAN 63 mL/min (90-120)
[2020-07-16 08:50] VITALS: BP 119/51
[2020-07-16 08:54] LABS: TROPONIN-I 1.717 ng/mL (0.000-0.060)
[2020-07-16 13:31] VITALS: BP 111/79
[2020-07-16 14:15] VITALS: Ht 172.7 cm; Wt 64.4 kg
[2020-07-16 16:37] VITALS: BP 110/46
[2020-07-16 20:00] VITALS: BP 118/48
[2020-07-17] VITALS: BP 124/54
[2020-07-17 04:00] VITALS: BP 109/58
[2020-07-17 04:51] LABS: BASOPHILS 0.1 % (0-2); EOSINOPHILS 2.3 % (0-7); HEMATOCRIT 33.2 % (42.0-54.0); IMMATURE GRANULOCYTES 0.1 % (0-5); LYMPHOCYTES 14.3 % (15-50); MCHC 30.1 g/dL (31.0-37.0); MCV 89.7 fL (80.0-100.0); MEAN PLATELET VOLUME 9.4 fL (7.4-10.4); MONOCYTES 12.9 % (2-11); NEUTROPHILS 70.3 % (40-80); PLATELET COUNT 220 10x3/uL (130-400); RDW 17.9 % (11.5-14.5)
[2020-07-17 05:16] LABS: WBC 6.9 10x3/uL (4.8-10.8)
[2020-07-17 05:30] LABS: CALCIUM 8.6 mg/dL (8.5-10.1); CARBON DIOXIDE 31.6 mmol/L (21.0-32.0); CREATININE - SERUM 1.5 mg/dL (0.6-1.3); MAGNESIUM - SERUM 1.8 mg/dL (1.8-2.4)
[2020-07-17 05:41] LABS: POTASSIUM - SERUM 3.6 mmol/L (3.5-5.1)
--- NOTE | 2020-07-17 06:53 | NUR ---
I have reviewed this patient and I concur with the Shift Assessment completed by the Licensed Practical Nurse today this shift.
[2020-07-17 08:00] VITALS: BP 113/32
[2020-07-17 12:00] VITALS: BP 109/53
[2020-07-17 15:26] VITALS: BP 109/42
--- NOTE | 2020-07-17 17:27 | NUR ---
I have reviewed this patient and I concur with the Shift Assessment completed by the Licensed Practical Nurse today this shift.
[2020-07-17 20:00] VITALS: BP 104/69
[2020-07-18] VITALS: BP 109/54
[2020-07-18 04:00] VITALS: BP 115/62
--- NOTE | 2020-07-18 04:05 | NUR ---
ASSESSED AT THE BEGINNING OF THE SHIFT. PT IS ALERT AND ORIENTED, ABLE TO VERBZLIZE NEEDS. HE IS UP WITH ASSIST AND HAS O2 AT 5 LITERS. THERE IS A URINAL AT THE BEDSIDE. HE HAS BEEN QUIET DURING THE NIGHT AND IS RESTING WITH HIS EYES CLOSED AT THIS TIME.
[2020-07-18 06:53] LABS: BASOPHILS 0.2 % (0-2); EOSINOPHILS 3.7 % (0-7); HEMATOCRIT 31.4 % (42.0-54.0); HEMOGLOBIN 9.5 g/dL (13.5-17.5); IMMATURE GRANULOCYTES 0.2 % (0-5); LYMPHOCYTES 19.1 % (15-50); MCH 27.2 pg (26.0-34.0); MCHC 30.3 g/dL (31.0-37.0); MONOCYTES 10.7 % (2-11); NEUTROPHILS 66.1 % (40-80); PLATELET COUNT 213 10x3/uL (130-400); RBC 3.49 10x6/uL (4.20-6.10); RDW 17.9 % (11.5-14.5); WBC 5.4 10x3/uL (4.8-10.8)
[2020-07-18 07:03] LABS: ANION GAP 7.4 mmol/L (8-16); CALCIUM 8.6 mg/dL (8.5-10.1); CARBON DIOXIDE 32.6 mmol/L (21.0-32.0); CREATININE - SERUM 1.4 mg/dL (0.6-1.3); MAGNESIUM - SERUM 1.9 mg/dL (1.8-2.4); PHOSPHOROUS 2.9 mg/dL (2.5-4.9)
[2020-07-18 07:15] LABS: PH - STOOL 6.5 (7.0-7.5)
[2020-07-18 08:09] VITALS: BP 124/54
--- NOTE | 2020-07-18 08:19 | EC ---
PATIENT:ORI MONSALVE DATE OF SERVICE: 07/15/20 SEX: M MEDICAL RECORD: [id number] DATE OF : 43 LOCATION:[facility] AGE OF PATIENT: 74 ADMISSION DATE: 07/15/20 REFERRING PHYSICIAN: INTERPRETING PHYSICIAN: FARTUN TIAN MD ECHOCARDIOGRAM REPORT ECHO CHARGES 4 ECHO COMPLETE Date: 07/16/20 CLINICAL DIAGNOSIS: CAD ECHOCARDIOGRAPHIC MEASUREMENTS (adult normal given) AC root (d.<3.7cm) 3.3 cm LV Septum d (<1.2 cm> 1.0 cm Valve Excursion 1.6 cm LV Septum (systole) 1.8 cm Left Atria (s.<4.0cm> 3.9 cm LVPW d(<1.2cm) 1.0 cm RV (d.<2.3cm) 2.6 cm LVPW (sytole) 1.2 cm LV diastole(<5.6CM) 6.2 cm MV E-F(>70mm/sec) cm LV systole 4.8 cm LVOT Diameter 1.8 cm MV exc.(>10mm) cm Est.ejection fraction (50-75%) % DOPPLER: LVIT cm/sec A 25 cm/sec E 117 cm/sec LA cm/sec RVSP 25.7 mmHg LVOT 74 cm/sec AOP1/2T m/s Asc. Ao 93 cm/sec RVOT 48 cm/sec RA cm/sec PA 66 cm/sec AV Gradient Peak 3.5 mmHg AV Mean 1.7 mmHg AV Area 2.4 cm MV Gradient Peak 7.4 mmHg MV Mean 2.6 mmHg MV Area cm COMMENTS: [employer]roleum [employer] Faculty Member: Julieta [facility] Tool And Die Inspector: 3 Dr. Rosenthal TAPE# PACS Pericardial Effusion N DATE OF SERVICE: Adequate 2D, color flow imaging, spectral Doppler, and M-Mode. No LVH. LV internal dimensions are normal. Wall motion is normal. EF is greater than or equal to 55%. Aortic valve is sclerotic. There is no evidence of stenosis by Doppler interrogation. Left atrium is normal at 3.9 cm. Mitral valve shows no prolapse. Mild MR. Right-sided chambers are grossly normal. Mild plus TR. Incidental note is made of pacemaker lead in RV apex. ECHOCARDIOGRAM REPORT [id number] ORI MONSALVE TRANSINT:[id number] Voice Confirmation ID: [id number] DOCUMENT ID: [id number] FARTUN TIAN MD at 0819 CC: [id number] DICTATION DATE: 07/17/20 1311 SCRAPE GATHERER: 07/17/20 1359 ADM IN [facility] [address] [place] [address]
[2020-07-18 12:12] VITALS: BP 120/40
--- NOTE | 2020-07-18 12:28 | NUR ---
LYING IN BED,WITHOUT DISTRESS.CALL LIGHT IN REACH
[2020-07-18 15:37] VITALS: BP 110/47
[2020-07-19 04:00] VITALS: BP 123/60
--- NOTE | 2020-07-19 04:51 | NUR ---
ASSESSED AT THE BEGINNING OF THE SHIFT. PT IS ALERTAND ORIENTED, ABLE TO VERBALIZE NEEDS. HE IS GETTING UP TO THE BATHROOM AD CANELO WITH NO DIFFICULTY. HE HAS NOT TOLD US HE HAS HAD ANY LOOSE STOOL AND STATED HIS STOMACH WAS FEELING MUCH BETTER.HE WENT TO SLEEP SHORTLY AFTER GETTING HIS NIGHT MEDS AND IS WAKING UP ABOUT NOW. HE STATED YESTERDAY HE WAS A EARLY RISER.
[2020-07-19 06:46] LABS: BASOPHILS 0.1 % (0-2); EOSINOPHILS 2.7 % (0-7); HEMATOCRIT 32.6 % (42.0-54.0); HEMOGLOBIN 9.7 g/dL (13.5-17.5); IMMATURE GRANULOCYTES 0.3 % (0-5); LYMPHOCYTES 12.7 % (15-50); MCH 26.9 pg (26.0-34.0); MCHC 29.8 g/dL (31.0-37.0); MCV 90.3 fL (80.0-100.0); MEAN PLATELET VOLUME 9.3 fL (7.4-10.4); MONOCYTES 11.1 % (2-11); NEUTROPHILS 73.1 % (40-80); PLATELET COUNT 229 10x3/uL (130-400); RBC 3.61 10x6/uL (4.20-6.10); RDW 17.9 % (11.5-14.5)
[2020-07-19 07:03] LABS: ANION GAP 9.1 mmol/L (8-16); CALCIUM 8.5 mg/dL (8.5-10.1); CARBON DIOXIDE 29.2 mmol/L (21.0-32.0); CREATININE - SERUM 1.2 mg/dL (0.6-1.3); MAGNESIUM - SERUM 1.9 mg/dL (1.8-2.4); PHOSPHOROUS 2.9 mg/dL (2.5-4.9); POTASSIUM - SERUM 4.3 mmol/L (3.5-5.1)
[2020-07-19 09:39] VITALS: BP 130/62
[2020-07-19 12:12] VITALS: BP 116/57
--- NOTE | 2020-07-19 13:25 | NUR ---
IV TUBING CHANGED AND LABELED. ORANGE CAPS APPLIED
[2020-07-19 17:08] VITALS: BP 114/56
--- NOTE | 2020-07-19 19:00 | NUR ---
PATIENT ALERT AND ORIENTED WATCHING TV WHEN ENTERING THE ROOM. ASSESSMENT PERFORMED, SEE CHART. SPOKE WITH PATIENT AT LENGTH ABOUT PRIOR STAYS AND CARDIAC HISTORY. PATIENT ANXIOUS TO GO HOME. PROVIDED SUPPORT TO PATIENT. DENIES PAIN OR DISCOMFORT AT THIS TIME. CALL LIGHT IS CLOSE TO PATIENT. HE DENIES FURTHER NEEDS AT THIS TIME. CPOC.
[2020-07-19 20:00] VITALS: BP 113/56
[2020-07-20] VITALS: BP 122/63
[2020-07-20 04:00] VITALS: BP 199/67
--- NOTE | 2020-07-20 05:11 | NUR ---
ATTEMPTED TO ADMINISTER LASIX IV, PATIENT STATED "NO I DON'T NEED THAT. I DON'T WANT THAT." REFUSED FUROSEMIDE IVP.
[2020-07-20 07:37] LABS: CALCIUM 8.8 mg/dL (8.5-10.1); CARBON DIOXIDE 31.3 mmol/L (21.0-32.0); CREATININE - SERUM 1.2 mg/dL (0.6-1.3); MAGNESIUM - SERUM 1.9 mg/dL (1.8-2.4); PHOSPHOROUS 2.9 mg/dL (2.5-4.9); POTASSIUM - SERUM 4.3 mmol/L (3.5-5.1)
[2020-07-20 07:41] LABS: BASOPHILS 0.3 % (0-2); HEMATOCRIT 34.1 % (42.0-54.0); HEMOGLOBIN 10.2 g/dL (13.5-17.5); IMMATURE GRANULOCYTES 0.1 % (0-5); LYMPHOCYTES 11.5 % (15-50); MCH 27.1 pg (26.0-34.0); MCHC 29.9 g/dL (31.0-37.0); MCV 90.7 fL (80.0-100.0); MEAN PLATELET VOLUME 9.1 fL (7.4-10.4); MONOCYTES 10.6 % (2-11); NEUTROPHILS 74.5 % (40-80); PLATELET COUNT 252 10x3/uL (130-400); RBC 3.76 10x6/uL (4.20-6.10); RDW 17.8 % (11.5-14.5)
[2020-07-20 09:45] VITALS: BP 108/50
[2020-07-20 12:11] VITALS: BP 104/45
[2020-07-20 17:32] VITALS: BP 106/51
[2020-07-20 20:26] VITALS: BP 111/47
[2020-07-21 00:16] VITALS: BP 128/51
[2020-07-21 04:30] VITALS: BP 112/54
[2020-07-21 06:46] LABS: BASOPHILS 0.1 % (0-2); EOSINOPHILS 2.7 % (0-7); HEMOGLOBIN 10.3 g/dL (13.5-17.5); IMMATURE GRANULOCYTES 0.3 % (0-5); MCH 27.4 pg (26.0-34.0); MCHC 30.3 g/dL (31.0-37.0); MCV 90.4 fL (80.0-100.0); MEAN PLATELET VOLUME 9.3 fL (7.4-10.4); MONOCYTES 9.6 % (2-11); NEUTROPHILS 77.3 % (40-80); PLATELET COUNT 240 10x3/uL (130-400); RBC 3.76 10x6/uL (4.20-6.10); RDW 17.8 % (11.5-14.5); WBC 7.4 10x3/uL (4.8-10.8)
--- NOTE | 2020-07-21 07:10 | NUR ---
REC'D IN BED WAKE AND ALERT. RESP EVEN AND UNLABORED WITH NO DISTRESS NOTED. CAN EXPRESS NEEDS AND WANTS. NO C/O NOTED OR VOICED. ASSESSMENT COMPLETED. C/L IN REACH AT BEDSIDE.
[2020-07-21 07:35] LABS: ANION GAP 10.5 mmol/L (8-16); CALCIUM 8.9 mg/dL (8.5-10.1); CARBON DIOXIDE 26.2 mmol/L (21.0-32.0); CREATININE - SERUM 1.2 mg/dL (0.6-1.3); MAGNESIUM - SERUM 1.9 mg/dL (1.8-2.4); PHOSPHOROUS 2.9 mg/dL (2.5-4.9); POTASSIUM - SERUM 4.7 mmol/L (3.5-5.1)
[2020-07-21 08:54] VITALS: BP 128/60
[2020-07-21] MEDS ORDERED: LEVOFLOXACIN500 MG PO (10:12)
[2020-07-21] MEDS ORDERED: FLAGYL500 MG PO (10:13)
--- NOTE | 2020-07-21 10:31 | MORECARE ---
CASE MANAGEMENT DISCHARGE SUMMARY PATIENT: ORI MONSALVE UNIT: [id number] ADM DATE: 07/15/20 AGE: 74 : 44 SEX: M ROOM/BED: D.2228 AUTHOR: MICHELINE ALBRECHT PHYSICIAN: REFERRING PHYSICIAN: IRIS SHAHID MD DATE OF SERVICE: 07/21/20 Discharge Plan Patient Name: ORI MONSALVE [facility]:[place] : 1945 Planned Disposition: Home Anticipated Discharge Date: Discharge Date: Expected LOS: Initial Reviewer: [id number] Initial Review Date: 07/21/2020 Generated: 07/21/20 11:30 am Comments DCP- Discharge Planning Updated by [email or web address]: Mikki Lewis on 07/21/20 9:[address] Patient Name: ORI MONSALVE Admission Status: ER Accout number: [id number] Admission Date: 07-15-2020 : 1945 Admission Diagnosis:ACUTE AND CHRONIC RESPIRATORY FAILURE WITH HYPOXIA Attending: IRIS SHAHID Current LOS: 6 Anticipated DC Date: Planned Disposition: Home Primary Insurance: MEDICARE A & B Discharge Planning Comments: CM met with patient at bedside after explaining CM role and obtaining verbal consent. CM discussed availability / needs of home health, REHAB and medical equipment. PATIENT DENIES ANY DISCHARGE NEEDS. STATES HE HAS HOME O2 AND NEBS WITH [facility]. DECLINES NEED FOR HOME HEALTH. STATES WILL CHIEF HYDROELECTRIC STATION OPERATOR AT TIME OF DISCHARGE, SHE WILL BRING HIS PORTABLE OXYGEN. IMM SIGNED. Yard Demurrage Clerk: Mikki Lewis DCPIA - Discharge Planning Initial Assessment Updated by [id number]: Mikki Lewis on 07/21/20 10:22 am * Is the patient Alert and Oriented? Yes * PCP KEYES * ADLs Independent * Other Equipment 02,NEBS, WALKER WITH [facility] * Community resources currently utilized None * Additional services required to return to the preadmission environment? No * Can the patient safely return to the preadmission environment? Yes * Has this patient been hospitalized within the prior 30 days at any hospital? No Coverage Notice Reviewer: [id number] - Mikki Lewis Notice Issued Date-Time: 07/21/2020 10:24 Notice Type: IM Discharge Notice Notice Delivered To: Relationship to Patient: Sql Programmer Name: Delivery Method: - Dalia Days: Prior Verbal Notification: Recipient Understood Notice: Recipient Signature: Med Rec Note Co-signed by Attending: Coverage Notice Comment: Patient Name: ORI MONSALVE Page [phone] at 1031 All edits/amendments must be made on the electronic document DICTATION DATE: 07/21/20 1030 CATIA DESIGNER: NERI 07/21/20 1030 RPT#: [id number] DC DATE: STATUS: ADM IN [facility] [address] [place] [address] END OF REPORT
--- NOTE | 2020-07-21 12:33 | NUR ---
DC HOME AT THIS TIME VOICES UNDERSTANDING OF DC INSTRUCTIONS. IV DC AT THIS TIME. PT LEFT WITH ALL PERSONAL BELONGS.
--- NOTE | 2020-07-21 14:29 | MORECARE ---
CASE MANAGEMENT DISCHARGE SUMMARY PATIENT: ORI MONSALVE UNIT: [id number] ADM DATE: 07/15/20 AGE: 74 : 44 SEX: M ROOM/BED: D.2228 AUTHOR: MICHELINE ALBRECHT PHYSICIAN: REFERRING PHYSICIAN: IRIS SHAHID MD DATE OF SERVICE: 07/21/20 Discharge Plan Patient Name: ORI MONSALVE Facility: [facility]:[place] : 1945 Planned Disposition: Home Anticipated Discharge Date: Discharge Date: 07/21/2020 Expected LOS: Initial Reviewer: [id number] Initial Review Date: 07/21/2020 Generated: 07/21/20 3:28 pm Comments DCP- Discharge Planning Updated by [email or web address]: Mikki Lewis on 07/21/20 9:[address] Patient Name: ORI MONSALVE Admission Status: ER Accout number: [id number] Admission Date: 07-15-2020 : 1945 Admission Diagnosis:ACUTE AND CHRONIC RESPIRATORY FAILURE WITH HYPOXIA Attending: IRIS SHAHID Current LOS: 6 Anticipated DC Date: Planned Disposition: Home Primary Insurance: MEDICARE A & B Discharge Planning Comments: CM met with patient at bedside after explaining CM role and obtaining verbal consent. CM discussed availability / needs of home health, REHAB and medical equipment. PATIENT DENIES ANY DISCHARGE NEEDS. STATES HE HAS HOME O2 AND NEBS WITH [facility]. DECLINES NEED FOR HOME HEALTH. STATES WILL BYPRODUCTS SUPERVISOR AT TIME OF DISCHARGE, SHE WILL BRING HIS PORTABLE OXYGEN. IMM SIGNED. Fleecer: Mikki Lewis DCPIA - Discharge Planning Initial Assessment Updated by [id number]: Mikki Lewis on 07/21/20 10:22 am * Is the patient Alert and Oriented? Yes * PCP KEYES * ADLs Independent * Other Equipment 02,NEBS, WALKER WITH [facility] * Community resources currently utilized None * Additional services required to return to the preadmission environment? No * Can the patient safely return to the preadmission environment? Yes * Has this patient been hospitalized within the prior 30 days at any hospital? No Coverage Notice Reviewer: [id number] - Mikki Lewis Notice Issued Date-Time: 07/21/2020 10:24 Notice Type: IM Discharge Notice Notice Delivered To: Relationship to Patient: Cupola Melter Name: Delivery Method: - Dalia Days: Prior Verbal Notification: Recipient Understood Notice: Recipient Signature: Med Rec Note Co-signed by Attending: Coverage Notice Comment: Last DP export: 07/21/20 9:31 a Patient Name: ORI MONSALVE Page [phone] at 1429 All edits/amendments must be made on the electronic document DICTATION DATE: 07/21/201428 IN FLIGHT TECHNICIAN: NERI 07/21/201428 RPT#: [id number] DC DATE:07/21/20 STATUS: DIS IN [facility] [address] [place] [address] END OF REPORT
[2020-07-23 15:12] LABS: OVA + PARASITE EXAM Final report (())
== END 2020-07-21 12:37 | disposition home or self-care (01) | DRG 280 ==
LOC: D.ER 13:15 → D.MS 19:49
PROVIDERS: Family Medicine; ADMIT Family Medicine; ATTEND Family Medicine
DX: I11.0 Hypertensive heart disease with heart failure (principal); J96.21 Acute and chronic respiratory failure with hypoxia; I21.A1 Myocardial infarction type 2; I24.8 Other forms of acute ischemic heart disease; D64.9 Anemia, unspecified; Z79.01 Long term (current) use of anticoagulants; E78.5 Hyperlipidemia, unspecified; I73.9 Peripheral vascular disease, unspecified; J43.9 Emphysema, unspecified; M81.0 Age-related osteoporosis without current pathological fracture; N40.0 Benign prostatic hyperplasia without lower urinary tract symptoms; R74.8 Abnormal levels of other serum enzymes; R19.7 Diarrhea, unspecified; Z95.0 Presence of cardiac pacemaker; I48.0 Paroxysmal atrial fibrillation; I25.10 Atherosclerotic heart disease of native coronary artery without angina pectoris; I50.9 Heart failure, unspecified; R79.89 Other specified abnormal findings of blood chemistry

== ENCOUNTER 2020-08-10 12:35 | Inpatient (IN) | payer MEDICARE ==
[~2020-08-10] VITALS: Ht 172.7 cm; Wt 68.0 kg
--- NOTE | ~2020-08-10 | EC ---
PATIENT:ORI MONSALVE DATE OF SERVICE: 08/10/20 SEX: M MEDICAL RECORD: [id number] DATE OF : 43 LOCATION:[facility] AGE OF PATIENT: 74 ADMISSION DATE: 08/10/20 REFERRING PHYSICIAN: INTERPRETING PHYSICIAN: FARTUN TIAN MD ECHOCARDIOGRAM REPORT ECHO CHARGES 5 ECHO LIMITED Date: 08/12/20 CLINICAL DIAGNOSIS: NSTEMI ECHOCARDIOGRAPHIC MEASUREMENTS (adult normal given) AC root (d.<3.7cm) 0 cm LV Septum d (<1.2 cm> 0 cm Valve Excursion 0 cm LV Septum (systole) 0 cm Left Atria (s.<4.0cm> 0 cm LVPW d(<1.2cm) 0 cm RV (d.<2.3cm) 0 cm LVPW (sytole) 0 cm LV diastole(<5.6CM) 0 cm MV E-F(>70mm/sec) 0 cm LV systole 0 cm LVOT Diameter 00 cm MV exc.(>10mm) 0 cm Est.ejection fraction (50-75%) % DOPPLER: LVIT cm/sec A 0 cm/sec E 0 cm/sec LA 0 cm/sec RVSP 0 mmHg LVOT 0 cm/sec AOP1/2T 0 m/s Asc. Ao 0 cm/sec RVOT 0 cm/sec RA 0 cm/sec PA 0 cm/sec AV Gradient Peak 0 mmHg AV Mean 0 mmHg AV Area 0 cm MV Gradient Peak 0 mmHg MV Mean 0 mmHg MV Area 0 cm COMMENTS: 0 [employer] Superintendent: Julieta [facility] Correction Warden: 3 Dr. Rosenthal TAPE# PACS Pericardial Effusion N DATE OF SERVICE: This is a limited 2D and color flow. Grossly, LVH appears present. LV internal dimensions appears normal. Mild hypokinesis. This may be secondary to underlying atrial fibrillation and variable R-R intervals. Overall, LV function lower limits of normal at 45% to 50%. Aortic valve is tricuspid valve, good valve excursion. Left atrium grossly appears normal. Mild prolapse. Moderate MR. Right-sided chamber is grossly normal. Moderate TR. ECHOCARDIOGRAM REPORT [id number] ORI MONSALVE TRANSINT:[id number] Voice Confirmation ID: [id number] DOCUMENT ID: [id number] FARTUN TIAN MD CC: [id number] DICTATION DATE: 08/12/20 1523 MACHINE OPERATOR REPLANTER: 08/12/202223 ADM IN [facility] [address] [facility] [place] [address]
--- NOTE | ~2020-08-10 | CN ---
PATIENT NAME:ORI MONSALVE MEDICAL RECORD: [id number] : 43 LOCATION:D. D.2125 ADMIT DATE: 08/10/20 ACCOUNT: [id number] CONSULTING PHYSICIAN: FARTUN TIAN MD REFERRING PHYSICIAN: SONIA SEXTON MD DATE OF CONSULTATION: 08/11/2020 HISTORY OF PRESENT ILLNESS: A 74-year-old gentleman with history of coronary artery disease as well as obstructive pulmonary disease, admitted with probable right upper lobe pneumonitis as well as increasing shortness of breath, found to be in AFib with RVR. This has been an intermittent issue. He has been cardioverted on multiple occasions. Unable to maintain a sinus. At this point, he is on DOAC for cerebrovascular accident prophylaxis. We are asked to see him concerning his cardiovascular status. PAST MEDICAL HISTORY: Includes; 1. History of coronary artery disease, status post coronary artery bypass grafting. 2. Peripheral vascular disease, status post intervention. 3. Obstructive pulmonary disease. 4. Hypertension. 5. Dyslipidemia. MEDICATIONS: Include Lasix 40 mg p.o. every day, potassium 10 mEq every day, Restoril 15 mg p.o. at bedtime, Dilantin 200 every morning, sotalol 120 b.i.d., pravastatin 40 every day, metoprolol 25 every day, Plavix 75 every day as well as Xarelto 15 every day. ALLERGIES: Unknown. SOCIAL HISTORY: Lives at home. Does have some difficulty with ADLs secondary to underlying lung issues. Nonsmoker, nondrinker. REVIEW OF SYSTEMS: The patient reports easy bruising but reports no swollen glands. The patient reports no fever, no night sweats, no significant weight gain, no significant weight loss. No significant exercise tolerance. The patient reports no dry eyes, no irritation, no vision change. Patient reports no difficulty hearing and no ear pain. Patient reports no frequent nose bleeds or nose and sinus problems. Patient reports on arm pain on exertion. No shortness of breath while lying down. No history of heart murmur. Patient reports no cough, no wheezing or coughing up blood. Patient reports no abdominal pain, no vomiting. Normal appetite. No diarrhea and not vomiting blood. No nausea and no constipation. Patient reports no incontinence. No difficulty urinating. No hematuria. No increased frequency. Patient reports no muscle aches. No weakness, no arthralgias, no back pain. No swelling of the extremities. Patient reports no abnormal mole, no jaundice, no rashes. Reports no loss of consciousness. No weakness and no numbness. No seizures, dizziness, or headaches. The patient reports no depression, no sleep disturbance, feeling safe in a relationship and no alcohol abuse. Patient reports on fatigue. Reports no runny nose or sinus pressure. No itching, no hives, and no frequent sneezing. PHYSICAL EXAMINATION: LV. GENERAL: Elderly, no acute distress. VITAL SIGNS: Blood pressure 130/61, pulse 60 and regular. CONSULT REPORT [id number] ORI MONSALVE HEENT: Normocephalic, atraumatic. NECK: No bruits are noted. HEART: Regular, 100% paced at this point, II/ systolic ejection murmur. LUNGS: Prolonged expiratory phase with expiratory wheezes. ABDOMEN: Soft, nontender. EXTREMITIES: Pulse 2+. No edema. IMPRESSION AND PLAN: Suspect demand ischemia/type 2 myocardial infarction. Enzymes are flat-shaped on the leonardo curve. We will check echocardiographic study. Follow with you. TRANSINT:[id number] Voice Confirmation ID: [id number] DOCUMENT ID: [id number] FARTUN TIAN MD CC: [id number] DICTATION DATE: 08/11/20911 HEALTH INFORMATION ADMINISTRATOR: 08/11/20 1732 ADM IN [facility] [address] [id number]
[~2020-08-10 12:35] MED LIST changes: +FLAGYL500 MG PO
[2020-08-10 12:58] LABS: BASOPHILS 0.4 % (0-2); EOSINOPHILS 0.4 % (0-7); HEMOGLOBIN 10.9 g/dL (13.5-17.5); IMMATURE GRANULOCYTES 0.1 % (0-5); LYMPHOCYTES 5.8 % (15-50); MCH 26.5 pg (26.0-34.0); MCHC 30.3 g/dL (31.0-37.0); MCV 87.6 fL (80.0-100.0); MEAN PLATELET VOLUME 9.5 fL (7.4-10.4); MONOCYTES 9.2 % (2-11); NEUTROPHILS 84.1 % (40-80); PLATELET COUNT 260 10x3/uL (130-400); RBC 4.11 10x6/uL (4.20-6.10); RDW 17.4 % (11.5-14.5); WBC 8.2 10x3/uL (4.8-10.8)
[2020-08-10 13:09] LABS: CALC OSMOLALITY 274 mosm/kg (275-300); CALCIUM 9.2 mg/dL (8.5-10.1); CARBON DIOXIDE 26.8 mmol/L (21.0-32.0); CHLORIDE - SERUM 103 mmol/L (98-107); CREATININE - SERUM 1.2 mg/dL (0.6-1.3); GLUCOSE 110 mg/dL (74-106); POTASSIUM - SERUM 4.4 mmol/L (3.5-5.1); SODIUM 137 mmol/L (136-145); UREA NITROGEN 13 mg/dL (7-18); eGFR NON AFRICAN AMERICAN 63 mL/min (90-120)
[2020-08-10 13:11] LABS: APTT 28.8 SECONDS (22.8-39.4); INR 1.3 (0.85-1.17); PROTIME 16.1 SECONDS (11.6-15.0)
[2020-08-10 13:30] VITALS: BP 130/66
--- NOTE | 2020-08-10 13:30 | NUR ---
PT LAYING IN BED. RESPIRATIONS ARE EVEN AND UNLABORED. NO DISTRESS NOTED. COLOR WNL FOR RACE. WILL CONTINUE TO MONITOR.
[2020-08-10 13:33] LABS: ALKALINE PHOSPHATASE 155 U/L (30-120); ALT (SGPT) 7 U/L (10-68); BILIRUBIN - TOTAL 0.53 mg/dL (0.2-1.3); CKMB 1.6 U/L (0.0-3.6); CREATINE KINASE 50 UL (21-232); PROTEIN - SERUM 7.8 g/dL (6.4-8.2)
[2020-08-10 13:35] LABS: TROPONIN-I 0.541 ng/mL (0.000-0.060)
--- NOTE | 2020-08-10 13:48 | NUR ---
LACTIC ACID OF 2.3 CALLED BY AITCHBONE BREAKER. NOTIFIED EDP
--- NOTE | 2020-08-10 15:49 | NUR ---
RECEIVED PT TO ROOM 2124. PT A/O X4, A LITTLE SOB FROM HAVING TO MOVE FROM STRETCHER TO BED. ENCOURAGED PT TO TAKE IN DEEP BREATHS, PT ON 6L NC. RT WRIST INFUSING CARDIZEM AT 10. AND ZITHROMAX TO LT FA. ORIENTED PT TO ROOM AND CALL LIGHT, WILL ASSESS PT AND START PLAN OF CARE.
[2020-08-10] MEDS ORDERED: BETAPACE 120 M120 MG PO (15:53)
[2020-08-10] MEDS ORDERED: XARELTO15 MG PO (15:53)
[2020-08-10 16:45] VITALS: BP 109/73; BMI 22.8
--- NOTE | 2020-08-10 18:21 | NUR ---
PT RESTING COMFORTABLY WITH EYES CLOSED, NAD NOTED, CALL LIGHT IN REACH.
--- NOTE | 2020-08-10 19:30 | NUR ---
RECEIVED REPORT, WILL ASSUME CARE OF PT, MARIELLE-DHARA @10. LFA-SL, CAFIB ON TELEMTRY-87, 6L-NC- BED IS LOW, SRX2, CALL LIGHT IN REACH, WILL CONTINUE PLAN OF CARE
[2020-08-10 19:58] LABS: CKMB 1.8 U/L (0.0-3.6); CREATINE KINASE 51 UL (21-232)
[2020-08-10 19:59] LABS: TROPONIN-I 0.574 ng/mL (0.000-0.060)
[2020-08-10 20:00] VITALS: BP 111/55
--- NOTE | 2020-08-10 22:34 | NUR ---
CALLED RT PT , RT INCREASED [id number]
--- NOTE | 2020-08-10 22:34 | NUR ---
DECREASED CARDIZEM TO 5, HR-MID-50
[2020-08-11] VITALS: BP 112/47
--- NOTE | 2020-08-11 00:46 | NUR ---
HR-BOUNCING AROUND 60-90, UP CARDIZEM BACK TO 10 WILL CONTINUE TO MONITOR
[2020-08-11 01:35] LABS: CKMB 3.1 U/L (0.0-3.6)
[2020-08-11 01:36] LABS: CREATINE KINASE 293 UL (21-232); TROPONIN-I 0.568 ng/mL (0.000-0.060)
[2020-08-11 04:00] VITALS: BP 152/51
[2020-08-11 07:43] LABS: ALBUMIN 2.9 g/dL (3.4-5.0); ALKALINE PHOSPHATASE 147 U/L (30-120); ALT (SGPT) 7 U/L (10-68); BILIRUBIN - TOTAL 0.51 mg/dL (0.2-1.3); CALCIUM 8.9 mg/dL (8.5-10.1); CARBON DIOXIDE 28.3 mmol/L (21.0-32.0); CHLORIDE - SERUM 103 mmol/L (98-107); CKMB 1.9 U/L (0.0-3.6); CREATINE KINASE 57 UL (21-232); CREATININE - SERUM 1.4 mg/dL (0.6-1.3); GLUCOSE 87 mg/dL (74-106); MAGNESIUM - SERUM 1.9 mg/dL (1.8-2.4); PROTEIN - SERUM 7.6 g/dL (6.4-8.2); SODIUM 135 mmol/L (136-145); eGFR NON AFRICAN AMERICAN 52 mL/min (90-120)
[2020-08-11 07:44] LABS: CALC OSMOLALITY 270 mosm/kg (275-300); TROPONIN-I 0.511 ng/mL (0.000-0.060); UREA NITROGEN 17 mg/dL (7-18)
[2020-08-11 08:00] VITALS: BP 130/61
[2020-08-11 08:01] LABS: BASOPHILS 0.5 % (0-2); EOSINOPHILS 1.9 % (0-7); HEMATOCRIT 36.4 % (42.0-54.0); HEMOGLOBIN 10.8 g/dL (13.5-17.5); IMMATURE GRANULOCYTES 0.3 % (0-5); LYMPHOCYTES 11.8 % (15-50); MCH 26.5 pg (26.0-34.0); MCHC 29.7 g/dL (31.0-37.0); MCV 89.4 fL (80.0-100.0); MEAN PLATELET VOLUME 9.4 fL (7.4-10.4); NEUTROPHILS 74.5 % (40-80); PLATELET COUNT 295 10x3/uL (130-400); RBC 4.07 10x6/uL (4.20-6.10); RDW 17.5 % (11.5-14.5); WBC 7.8 10x3/uL (4.8-10.8)
--- NOTE | 2020-08-11 08:31 | NUR ---
NOTIFIED THAT THE PATIENTS HEART RATE IS 60 AND THAT HE IS RECEIVING SEVERAL CHRONOTROPIC MEDICATIONS THIS AM. HE ORDERED TO STOP THE CARDIZEM AND ADMININSTERED ALL PO MEDICATIONS. WILL CTM.
[2020-08-11 11:56] VITALS: BP 111/72
[2020-08-11 13:24] VITALS: Ht 172.7 cm; Wt 68.0 kg
[2020-08-11 16:12] VITALS: BP 93/45
--- NOTE | 2020-08-11 17:46 | NUR ---
BLADDER SCANNED PATIENT AND FOUND THERE TO BE 369ML URINE RECORDED. INSTRUCTED PATIENT THAT OVER 150ML OF URINE RECORDED WOULD WARRANT A LOCO CATH. PATIENT REQUESTED THAT I WAIT TO PLACE THE CATHETER BECAUSE HE HAD TO VOID AND IF HE WAS RETAININING OVER 150ML AFTER VOIDING THEN WE COULD PLACE THE CATHETER. WILL CTM.
--- NOTE | 2020-08-11 19:30 | NUR ---
RECEIVED REPORT, WILL ASSUME CARE OF PT, JOSEFA WANTING TO WAIT ON LOCO, 7HF, [id number], LFA-NS@50, PT HAS A PACEMAKER AND DEFIB. DENIES ANY NEEDS AT THIS TIME, BED IS LOW, SRX2, CALL LIGHT IN REACH, WILL CONTINUE PLAN OF CARE
[2020-08-11 20:00] VITALS: BP 112/66
[2020-08-12] VITALS: BP 114/63
[2020-08-12 04:00] VITALS: BP 114/42
[2020-08-12 05:32] LABS: BASOPHILS 0.1 % (0-2); HEMATOCRIT 35.4 % (42.0-54.0); HEMOGLOBIN 10.5 g/dL (13.5-17.5); IMMATURE GRANULOCYTES 0.1 % (0-5); LYMPHOCYTES 8.3 % (15-50); MCH 26.3 pg (26.0-34.0); MCHC 29.7 g/dL (31.0-37.0); MCV 88.5 fL (80.0-100.0); MEAN PLATELET VOLUME 9.4 fL (7.4-10.4); MONOCYTES 7.4 % (2-11); NEUTROPHILS 82.1 % (40-80); PLATELET COUNT 267 10x3/uL (130-400); RDW 17.5 % (11.5-14.5); WBC 7.5 10x3/uL (4.8-10.8)
[2020-08-12 05:59] LABS: ALBUMIN 2.8 g/dL (3.4-5.0); ANION GAP 11.8 mmol/L (8-16); BILIRUBIN - TOTAL 0.41 mg/dL (0.2-1.3); CALCIUM 8.7 mg/dL (8.5-10.1); CARBON DIOXIDE 26.1 mmol/L (21.0-32.0); CREATININE - SERUM 1.6 mg/dL (0.6-1.3); MAGNESIUM - SERUM 1.9 mg/dL (1.8-2.4); POTASSIUM - SERUM 4.9 mmol/L (3.5-5.1); PROTEIN - SERUM 7.7 g/dL (6.4-8.2)
--- NOTE | 2020-08-12 06:26 | NUR ---
PLACED A 16FR LOCO-OUTPUT 600
[2020-08-12 07:00] VITALS: BP 122/69
--- NOTE | 2020-08-12 07:00 | NUR ---
RECEIVED REPORT. ASSUMED CARE OF PATIENT. PATIENT RESTING IN BED WITH EYES OPEN. BEDSIDE SHIFT REPORT COMPLETE. WHITE BOARD UPDATED. PATIENT SON AT BEDSIDE. CALL LIGHT WITHIN REACH. DENIES NEEDS AND STATES HE FEELS GOOD THIS AM.
--- NOTE | 2020-08-12 07:00 | NUR ---
RECEIVED REPORT. ASSUMED CARE OF PATIENT. PATIENT RESTING WITH EYES CLOSED, EASILY AROUSED. RESP EVEN AND UNLABORED. PATIENT FOR HEMOSPLIT PLACEMENT THIS AM. BEDSIDE SHIFT REPORT COMPLETE, WHITE BOARD UPDATED.
--- NOTE | 2020-08-12 07:23 | NUR ---
PATIENT LEAVING VIA BED AT THIS TIME FOR HEMOSPLIT PLACEMENT. NO DISTRESS.
[2020-08-12 08:31] LABS: BILIRUBIN NEGATIVE (NEGATIVE); KETONE NEGATIVE (NEGATIVE); NITRITE NEGATIVE (NEGATIVE); UROBILINOGEN NORMAL mg/dL (< 2)
[2020-08-12 08:32] LABS: BACTERIA FEW /HPF (NONE SEEN); EPITHELIAL CELLS 0-5 /hpf (0-5); WHITE CELLS - URINE RARE HPF (0-1)
[2020-08-12 08:33] LABS: AMORPHOUS SEDIMENT <1+ /lpf (NONE SEEN); GRANULAR CAST OCC /lpf (NONE SEEN)
[2020-08-12 11:00] VITALS: BP 109/58
[2020-08-12 17:12] VITALS: BP 106/67
[2020-08-12 19:35] LABS: BASOPHILS 0.5 % (0-2); EOSINOPHILS 0.1 % (0-7); HEMATOCRIT 39.8 % (42.0-54.0); HEMOGLOBIN 11.9 g/dL (13.5-17.5); LYMPHOCYTES 28.3 % (15-50); MCH 26.4 pg (26.0-34.0); MCHC 29.9 g/dL (31.0-37.0); MCV 88.4 fL (80.0-100.0); MEAN PLATELET VOLUME 9.8 fL (7.4-10.4); MONOCYTES 6.1 % (2-11); RDW 17.5 % (11.5-14.5); WBC 7.4 10x3/uL (4.8-10.8)
[2020-08-12 19:59] LABS: PLATELET COUNT 143 10x3/uL (130-400)
[2020-08-12 20:00] LABS: ALBUMIN 2.7 g/dL (3.4-5.0); BILIRUBIN - TOTAL 0.37 mg/dL (0.2-1.3); CALCIUM 8.5 mg/dL (8.5-10.1); CREATININE - SERUM 1.7 mg/dL (0.6-1.3); PROTEIN - SERUM 7.5 g/dL (6.4-8.2)
[2020-08-12 20:05] LABS: ANION GAP 18.6 mmol/L (8-16); CARBON DIOXIDE 17.8 mmol/L (21.0-32.0)
[2020-08-12 20:06] LABS: POTASSIUM - SERUM 7.4 mmol/L (3.5-5.1)
[2020-08-12 20:18] LABS: APTT 33.6 SECONDS (22.8-39.4); INR 2.82 (0.85-1.17); PROTIME 29.2 SECONDS (11.6-15.0)
[2020-08-12 20:19] LABS: D-DIMER-QUANTITATIVE 3.57 ug/mLFEU (0.20-0.54)
--- NOTE | 2020-08-13 12:01 | MORECARE ---
CASE MANAGEMENT DISCHARGE SUMMARY PATIENT: ORI MONSALVE UNIT: [id number] ADM DATE: 08/10/20 AGE: 74 : 44 SEX: M ROOM/BED: D.2315 AUTHOR: MICHELINE ALBRECHT PHYSICIAN: REFERRING PHYSICIAN: SONIA SEXTON MD DATE OF SERVICE: 08/13/20 Discharge Plan Patient Name: ORI MONSALVE Facility: [facility]:[place] : 1945 Planned Disposition: Anticipated Discharge Date: Discharge Date: 08/12/2020 Expected LOS: Initial Reviewer: [email or web address] Initial Review Date: 08/10/2020 Generated: 08/13/20 1:00 pm Patient Name: ORI MONSALVE Page [id number] at 1201 All edits/amendments must be made on the electronic document DICTATION DATE: 08/13/20 1201 PERSONAL FITNESS TRAINER: NERI 08/13/20 1201 RPT#: [id number] DC DATE:08/12/20 STATUS: DIS IN [facility] [address] [facility] [place] [address] END OF REPORT
== END 2020-08-12 23:32 ==
LOC: D.ER 12:35 → D.M2 14:58 → D.ICU 08-12 19:20
PROVIDERS: Emergency Medicine; Family Medicine; ADMIT Family Medicine; ATTEND Family Medicine
PROC: 5A12012 Performance of Cardiac Output, Single, Manual (ICD-10-PCS; principal; 2020-08-12)
PROC: 0BH17EZ Insertion of Endotracheal Airway into Trachea, Via Natural or Artificial Opening (ICD-10-PCS; 2020-08-12)
PROC: 5A1935Z Respiratory Ventilation, Less than 24 Consecutive Hours (ICD-10-PCS; 2020-08-12)
DX: I21.4 Non-ST elevation (NSTEMI) myocardial infarction (principal); J18.9 Pneumonia, unspecified organism; J96.21 Acute and chronic respiratory failure with hypoxia; I50.23 Acute on chronic systolic (congestive) heart failure; I13.0 Hypertensive heart and chronic kidney disease with heart failure and stage 1 through stage 4 chronic kidney disease, or unspecified chronic kidney disease; I47.2 Ventricular tachycardia; N17.9 Acute kidney failure, unspecified; E87.1 Hypo-osmolality and hyponatremia; J98.11 Atelectasis; I25.10 Atherosclerotic heart disease of native coronary artery without angina pectoris; I48.91 Unspecified atrial fibrillation; E78.5 Hyperlipidemia, unspecified; D50.9 Iron deficiency anemia, unspecified; N18.9 Chronic kidney disease, unspecified; J43.9 Emphysema, unspecified; N40.0 Benign prostatic hyperplasia without lower urinary tract symptoms; D63.1 Anemia in chronic kidney disease; G47.00 Insomnia, unspecified; J30.9 Allergic rhinitis, unspecified; E87.5 Hyperkalemia; I08.1 Rheumatic disorders of both mitral and tricuspid valves; Z86.73 Personal history of transient ischemic attack (TIA), and cerebral infarction without residual deficits; Z95.0 Presence of cardiac pacemaker